=== PATIENT | female | born 1965 | race Caucasian/White ===

== ENCOUNTER 2016-05-31 11:23 | Inpatient (IN) | payer OTHER ==
[2016-05-31 12:22] VITALS: BMI 18.0
--- NOTE | 2016-05-31 12:33 | HP ---
CIWA Score - CIWA Score Nausea/Vomitin Muscle Tremors: 3 Anxiety: 3 Agitation: 3 Paroxysmal Sweats: 2 Orientation: 0-Oriented Tacttile Disturbances: 2-Mild Itch/Numbness/Burn Auditory Disturbances: 2-Mild Harshness/Frighten Visual Disturbances: 2-Mild Sensitivity Headache: 2-Mild CIWA-Ar Total Score: 22 Admission ROS [facility]HS - HPI Chief Complaint: i am here need help to stop drinking alcohol,cocaine,marijuana,and xanax Allergies/Adverse Reactions: Allergies Allergy/AdvReac Type Severity Reaction Status Date / Time No Known Allergies Allergy Verified 05/31/16 12:41 History of Present Illness: this 51 years old female with alcohol,cocaine,marijuana and xanax dependence, withdrawal symptom,last detox [facility] from 04/08/16 to 04/11/16 seizure last 2014 syncope bipolar disorder and ptsd longest period of sobriety 2 years has yeast like infection 2 days ago Exam Limitations: No Limitations - Ebola screening Have you traveled outside of the country in the last 21 days: No Have you had contact with anyone from an Ebola affected area: No Have you been sick,other than usual withdrawal symptoms: No Do you have a fever: No - Review of Systems Constitutional: Loss of Appetite, Malaise, Night Sweats, Changes in sleep, Weakness, Unintentional Wgt. Loss EENT: reports: Nose Congestion Respiratory: reports: No Symptoms reported, Other (asthma) Cardiac: reports: Palpitations GI: reports: Diarrhea, Nausea, Poor Fluid Intake, Vomiting : reports: No Symptoms Reported Musculoskeletal: reports: Back Pain, Muscle Pain Integumentary: reports: Dryness Neuro: reports: Headache, Tremors Endocrine: reports: No Symptoms Reported Hematology: reports: No Symptoms Reported Psychiatric: reports: other (bipolar disorder,ptsd) Other Systems: Reviewed and Negative Patient History - Patient Medical History Hx Anemia: No Hx Asthma: Yes (MDI) Hx Chronic Obstructive Pulmonary Disease (COPD): No Hx Cancer: No Hx Cardiac Disorders: No Hx Congestive Heart Failure: No Hx Hypertension: No Hx Hypercholesterolemia: No Hx Pacemaker: No HX Cerebrovascular Accident: No Hx Seizures: Yes (last ) Hx Dementia: No Hx Diabetes: No Hx Gastrointestinal Disorders: No Hx Liver Disease: No Hx Genitourinary Disorders: No Hx Sexually Transmitted Disorders: No Hx Renal Disease (ESRD): No Hx Thyroid Disease: No Hx Human Immunodeficiency Virus (HIV): No (NEGATIVE HX) Hx Hepatitis C: No Hx Depression: Yes (ON MEDS) Hx Suicide Attempt: Yes (pill overdose in 12/2015;DENIES CURRENT S/I IDEATION) Hx Bipolar Disorder: Yes (on meds,non compliance) Hx Schizophrenia: No Other Medical History: no suicidal,no homicidal,yeast vaginitis - Patient Surgical History Past Surgical History: No Hx Neurologic Surgery: No Hx Cataract Extraction: No Hx Cardiac Surgery: No Hx Lung Surgery: No Hx Breast Surgery: No Hx Breast Biopsy: No Hx Abdominal Surgery: No Hx Appendectomy: No Hx Cholecystectomy: No Hx Genitourinary Surgery: No Hx Section: No Hx Orthopedic Surgery: No Hx Hysterectomy: No Anesthesia Reaction: No - PPD History Previous Implant?: Yes Documented Results: Negative w/o proof Implanted On Prior [facility] Admission?: Yes Date: 04/19/15 Results: 0 mm PPD to be Administered?: Yes - Reproductive History Patient is a Female of Child Bearing Age (11 -55 yrs old): Yes Last Menstrual Period: 03/17/16 Patient : No - Smoking Cessation Smoking history: Current some day smoker Have you smoked in the past 12 months: Yes Aproximately how many cigarettes per day: 1 If you are a former smoker, when did you quit?: 05/12/16 Hx Chewing Tobacco Use: No Initiated information on smoking cessation: Yes 'Breaking Loose' booklet given: 05/31/16 - Substance & Tx. History Hx Alcohol Use: Yes Hx Substance Use: Yes Substance Use Type: Alcohol, Cocaine, Marijuana, Tranquilizers Hx Substance Use Treatment: Yes ([facility] 04/08/16 to 04/11/16) - Substances Abused Crack Route: Smoking Frequency: Daily Amount used: $200.00 Age of first use: 29 Date of Last Use: 05/30/16 Alcohol Route: Oral Frequency: Daily Amount used: Beer 1-6pks, Cognac 2 pints Age of first use: 17 Date of Last Use: 05/30/16 Marijuana/Hashish Route: Smoking Frequency: Daily Amount used: $50.00 Age of first use: 15 Date of Last Use: 05/30/16 Family Disease History - Family Disease History Family Disease History: Other: Father (alcohol,) Admission Physical Exam S - Vital Signs Vital Signs: Vital Signs - 24 hr 05/31/16 12:20 Temperature 97.6 F Pulse Rate 80 Respiratory 20 Rate Blood Pressure 117/67 - Physical General Appearance: Yes: Moderate Distress, Tremorous, Irritable, Sweating, Anxious HEENTM: Yes: Nasal Congestion, Rhinorrhea Respiratory: Yes: Lungs Clear Neck: Yes: Within Normal Limits Breast: Yes: Breast Exam Deferred, Within Normal Limits Cardiology: Yes: Within Normal Limits, Regular Rhythm, Regular Rate, S1, S2 Abdominal: Yes: Within Normal Limits, Normal Bowel Sounds, Non Tender, Flat, Soft Genitourinary: Yes: Vaginal Discharge Back: Yes: Muscle Spasm Musculoskeletal: Yes: Back pain, Muscle Pain Extremities: Yes: Tremors Neurological: Yes: shoe puller II-XII NML intact, Fully Oriented, Alert, Motor Strength 5/5 Integumentary: Yes: Dry Lymphatic: Yes: Within Normal Limits - Diagnostic (1) Alcohol dependence with uncomplicated withdrawal Current Visit: No Status: Chronic (2) Asthma Current Visit: No Status: Chronic Qualifiers: Asthma severity: unspecified severity Asthma complication type: uncomplicated Qualified Code(s): J45.909 - Unspecified asthma, uncomplicated (3) Bipolar II disorder Current Visit: No Status: Chronic (4) Cannabis dependence Current Visit: No Status: Chronic (5) Cocaine dependence with withdrawal Current Visit: No Status: Chronic (6) Seizure Current Visit: No Status: Chronic (7) Syncope Current Visit: No Status: Chronic (8) Weight loss Current Visit: No Status: Chronic (9) PTSD (post-traumatic stress disorder) Current Visit: No Status: Suspected Comment: As per self-report. (10) Vaginitis Current Visit: Yes Status: Acute (11) Low back pain Current Visit: Yes Status: Acute Cleared for Admission [facility] - Detox or Rehab [facility] Level of Care: Medically Managed Detox Regimen/Protocol: Librium [facility] Breath Alcohol Content Breath Alcohol Content: 0 Urine Pregancy Test - Result Urine Test Results: Negative- NO Line Present Urine Drug Screen - Results Drug Screen Negative: No Urine Drug Screen Results: THC-Marijuana, BARRY-Cocaine
[2016-05-31] MEDS ORDERED: ACETAMINOPHEN 325 MG TABLET (FP) PO PRN (12:48)
[2016-05-31] MEDS ORDERED: MAGNESIUM CITRATE 300 ML BOTTLE PO PRN (12:48)
[2016-05-31] MEDS ORDERED: IBUPROFEN 400 MG TABLET (FP) PO PRN (12:48)
[2016-05-31] MEDS ORDERED: diphenhydrAMINE HCL 50 MG CAPSULE PO PRN (12:48)
[2016-05-31] MEDS ORDERED: MAGNESIUM HYDROX 2400MG/30ML ORAL SUSPENSION 30 ML CUP PO PRN (12:48)
[2016-05-31] MEDS ORDERED: guaiFENesin/D-METHORPHAN HB 10 ML UNIT-DOSE CUPS PO PRN (12:48)
[2016-05-31] MEDS ORDERED: MAG HYDROX/AL HYDROX/SIMETH 30 ML UNIT-DOSE CUP PO PRN (12:48)
[2016-05-31] MEDS ORDERED: LOPERAMIDE HCL 2 MG CAPSULE PO PRN (12:48)
[2016-05-31] MEDS ORDERED: P-EPHED 60MG/TRIPROLIDI 2.5MG TABLET PO PRN (12:48)
[2016-05-31] MEDS ORDERED: MENTHOL/PHENOL 1 EACH UD MM PRN (12:48)
[2016-05-31] MEDS ORDERED: ALBUTEROL SO4 6.7 GM HFA INHALER IH PRN (12:55)
[2016-05-31] MEDS ORDERED: chlordiazePOXIDE HCL 25 MG CAPSULE PO ONE ×2 (13:00→16:55)
[2016-05-31] MEDS ORDERED: FLUCONAZOLE 50 MG TABLET PO ONE (13:02)
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
[2016-05-31] MEDS: CYCLOBENZAPRINE HCL 10 MG TABLET (FP) PO PRN (16:45)
[2016-05-31] MEDS: chlordiazePOXIDE HCL 25 MG CAPSULE PO SCH ×2 (16:51→22:42)
--- NOTE | 2016-05-31 16:55 | PN ---
[facility] Progress Note Note: RECEIVED NURSE CALL PATIENT WASTED LIBRIUM 50 MG ONE DOSE LIBRIUM STAT CONTINUE DETOX
[2016-05-31 17:44] LABS: URINE APPEARANCE CLOUDY; URINE BILIRUBIN NEGATIVE (NEGATIVE); URINE BLOOD NEGATIVE (NEGATIVE); URINE COLOR YELLOW; URINE GLUCOSE (UA) NEGATIVE (NEGATIVE); URINE KETONE NEGATIVE (NEGATIVE); URINE NITRITE NEGATIVE (NEGATIVE); URINE PROTEIN NEGATIVE (NEGATIVE); URINE UROBILINOGEN 2.0 E.U/dl E.U./dl (0.2-1.0)
[2016-05-31 17:59] LABS: URINE LEUK ESTERASE TRACE (NEGATIVE)
[2016-05-31 18:20] LABS: URINE BACTERIA RARE /hpf (NONE SEEN); URINE RBC 1 /hpf (0-3); URINE WBC 2 /hpf (3-5)
[2016-05-31] MEDS: MICONAZOLE NITRATE 100 MG SUPP SUPP.VAG PV SCH (22:39)
[2016-05-31] MEDS: DIVALPROEX SODIUM 500 MG TABLET E.C. PO SCH (22:41)
[2016-05-31] MEDS: THIAMINE HCL 100 MG TABLET (FP) PO SCH (22:41)
[2016-05-31] MEDS: QUEtiapine FUMARATE 100 MG TABLET (FP) PO SCH (22:41)
[2016-05-31] MEDS: AMMONIUM LACTATE 12% LOTION 225 GM BOTTLE TP SCH (22:41)
[2016-05-31] MEDS: BUDESONIDE/FORMETEROL FUMARATE 80/4.5 mcg INHALER IH SCH (22:43)
[2016-06-01] MEDS: chlordiazePOXIDE HCL 25 MG CAPSULE PO SCH ×4 (06:15→22:38)
[2016-06-01 10:44] LABS: MCH 29.9 pg (25.7-33.7); MCHC 32.3 g/dl (32.0-36.0); MEAN CELL VOLUME 92.7 fl (80-96); MEAN PLT VOLUME 8.4 fl (7.5-11.1); PLATELET COUNT 339 K/MM3 (134-434); RDW 15.3 % (11.6-15.6); WHITE BLOOD COUNT 7.3 K/mm3 (4.0-10.0)
[2016-06-01 10:45] LABS: URINE APPEARANCE CLEAR; URINE BILIRUBIN NEGATIVE (NEGATIVE); URINE BLOOD NEGATIVE (NEGATIVE); URINE COLOR STRAW; URINE GLUCOSE (UA) NEGATIVE (NEGATIVE); URINE KETONE NEGATIVE (NEGATIVE); URINE NITRITE NEGATIVE (NEGATIVE); URINE PROTEIN NEGATIVE (NEGATIVE); URINE UROBILINOGEN NEGATIVE E.U./dl (0.2-1.0)
[2016-06-01 10:46] LABS: URINE LEUK ESTERASE 2+ (NEGATIVE)
[2016-06-01 10:48] LABS: URINE RBC 1 /hpf (0-3); URINE WBC 2 /hpf (3-5)
[2016-06-01 10:51] LABS: ALBUMIN 3.9 g/dl (3.4-5.0); ALK PHOS 47 U/L (45-117); ANION GAP 9 (8-16); BILIRUBIN,TOTAL 0.2 mg/dL (0.2-1.0); CALCIUM 9.4 mg/dL (8.5-10.1); CO2 29 mmol/L (21-32); CREATININE 0.7 mg/dL (0.55-1.02); GLUCOSE,RANDOM 71 mg/dL (74-106); SGOT/AST 14 U/L (15-37); SGPT/ALT 17 U/L (12-78); TOT PROT 6.6 g/dl (6.4-8.2)
[2016-06-01] MEDS: BUDESONIDE/FORMETEROL FUMARATE 80/4.5 mcg INHALER IH SCH ×2 (11:00→23:26)
[2016-06-01] MEDS: PRENATAL VITAMINS W/ FOLIC ACID TABLET (FP) PO SCH (11:00)
[2016-06-01] MEDS: DIVALPROEX SODIUM 500 MG TABLET E.C. PO SCH ×2 (11:01→22:38)
[2016-06-01] MEDS: AMMONIUM LACTATE 12% LOTION 225 GM BOTTLE TP SCH ×2 (11:04→23:24)
[2016-06-01] MEDS: CYCLOBENZAPRINE HCL 10 MG TABLET (FP) PO PRN ×2 (11:06→22:38)
--- NOTE | 2016-06-01 14:26 | PN ---
S CIWA - CIWA Score Nausea/Vomitin Muscle Tremors: 3 Anxiety: 3 Agitation: 3 Paroxysmal Sweats: 1-Minimal Palms Moist Orientation: 0-Oriented Tacttile Disturbances: 1-Very Mild Itch/Numbness Auditory Disturbances: 1-Very Mild Visual Disturbances: 1-Very Mild Sensitivity Headache: 2-Mild CIWA-Ar Total Score: 18 BHS Progress Note (SOAP) Subjective: ALERT,IRRITABLE,ANXIOUS,INTERRUPTED SLEEP,TREMOR Objective: 06/01/16 14:23 Vital Signs Temperature 98.6 F 06/01/16 10:11 Pulse Rate 93 H 06/01/16 10:11 Respiratory Rate 16 06/01/16 10:11 Blood Pressure 141/89 06/01/16 10:11 O2 Sat by Pulse Oximetry (%) EKG NSR, NO CHEST PAIN,NO SOB,NO DIZZINESS Laboratory Last Values WBC 7.3 K/mm3 (4.0-10.0) 06/01/16 06:00 RBC 3.98 M/mm3 (3.60-5.2) 06/01/16 06:00 Hgb 11.9 GM/dL (10.7-15.3) 06/01/16 06:00 Hct 36.9 % (32.4-45.2) 06/01/16 06:00 MCV 92.7 fl (80-96) 06/01/16 06:00 MCHC 32.3 g/dl (32.0-36.0) 06/01/16 06:00 RDW 15.3 % (11.6-15.6) 06/01/16 06:00 Plt Count 339 K/MM3 (134-434) 06/01/16 06:00 MPV 8.4 fl (7.5-11.1) 06/01/16 06:00 Sodium 144 mmol/L (136-145) 06/01/16 06:00 Potassium 4.2 mmol/L (3.5-5.1) 06/01/16 06:00 Chloride 106 mmol/L (98-107) 06/01/16 06:00 Carbon Dioxide 29 mmol/L (21-32) 06/01/16 06:00 Anion Gap 9 (8-16) 06/01/16 06:00 BUN 13 mg/dL (7-18) D 06/01/16 06:00 Creatinine 0.7 mg/dL (0.55-1.02) 06/01/16 06:00 Creat Clearance w eGFR > 60 (>60) 06/01/16 06:00 Random Glucose 71 mg/dL (74-106) L 06/01/16 06:00 Calcium 9.4 mg/dL (8.5-10.1) 06/01/16 06:00 Total Bilirubin 0.2 mg/dL (0.2-1.0) D 06/01/16 06:00 AST 14 U/L (15-37) L D 06/01/16 06:00 ALT 17 U/L (12-78) 06/01/16 06:00 Alkaline Phosphatase 47 U/L (45-117) 06/01/16 06:00 Total Protein 6.6 g/dl (6.4-8.2) 06/01/16 06:00 Albumin 3.9 g/dl (3.4-5.0) 06/01/16 06:00 Urine Color Straw 06/01/16 08:40 Urine Appearance Clear 06/01/16 08:40 Urine pH 7.0 (5.0-8.0) 06/01/16 08:40 Ur Specific [place] 1.010 (1.001-1.035) 06/01/16 08:40 Urine Protein Negative (NEGATIVE) 06/01/16 08:40 Urine Glucose (UA) Negative (NEGATIVE) 06/01/16 08:40 Urine Ketones Negative (NEGATIVE) 06/01/16 08:40 Urine Blood Negative (NEGATIVE) 06/01/16 08:40 Urine Nitrite Negative (NEGATIVE) 06/01/16 08:40 Urine Bilirubin Negative (NEGATIVE) 06/01/16 08:40 Urine Urobilinogen Negative E.U./dl (0.2-1.0) 06/01/16 08:40 Ur Leukocyte Esterase 2+ (NEGATIVE) H D 06/01/16 08:40 Urine RBC 1 /hpf (0-3) 06/01/16 08:40 Urine WBC 2 /hpf (3-5) 06/01/16 08:40 Ur Epithelial Cells Rare /hpf (FEW) 06/01/16 08:40 Urine Bacteria Rare /hpf (NONE SEEN) 05/31/16 14:00 Valproic Acid < 3.000 ug/ml (50-100) L 06/01/16 09:30 Assessment: 06/01/16 14:25 WITHDRAWAL SYMPTOM Plan: CONTINUE DETOX
[2016-06-01] MEDS: hydrOXYzine PAMOATE 50 MG CAPSULE (FP) PO PRN (15:36)
[2016-06-01] MEDS: chlordiazePOXIDE HCL 25 MG CAPSULE PO PRN (20:43)
[2016-06-01] MEDS: THIAMINE HCL 100 MG TABLET (FP) PO SCH (22:37)
[2016-06-01] MEDS: QUEtiapine FUMARATE 100 MG TABLET (FP) PO SCH (22:38)
[2016-06-01] MEDS: ZOLPIDEM TARTRATE 5 MG TABLET PO PRN (22:38)
[2016-06-01] MEDS: MICONAZOLE NITRATE 100 MG SUPP SUPP.VAG PV SCH (23:24)
[2016-06-02] MEDS: CYCLOBENZAPRINE HCL 10 MG TABLET (FP) PO PRN ×3 (06:19→22:52)
[2016-06-02] MEDS: chlordiazePOXIDE HCL 25 MG CAPSULE PO SCH ×2 (06:19→10:42)
[2016-06-02] MEDS: hydrOXYzine PAMOATE 50 MG CAPSULE (FP) PO PRN ×3 (06:20→19:40)
[2016-06-02] MEDS: DIVALPROEX SODIUM 500 MG TABLET E.C. PO SCH ×2 (10:42→22:52)
[2016-06-02] MEDS: BUDESONIDE/FORMETEROL FUMARATE 80/4.5 mcg INHALER IH SCH ×2 (10:42→22:51)
[2016-06-02] MEDS: PRENATAL VITAMINS W/ FOLIC ACID TABLET (FP) PO SCH (10:42)
[2016-06-02] MEDS: AMMONIUM LACTATE 12% LOTION 225 GM BOTTLE TP SCH ×2 (10:54→23:13)
[2016-06-02] MEDS: chlordiazePOXIDE HCL 25 MG CAPSULE PO PRN ×2 (12:17→19:40)
--- NOTE | 2016-06-02 12:56 | PN ---
S CIWA - CIWA Score Nausea/Vomitin Muscle Tremors: 3 Anxiety: 2 Agitation: 2 Paroxysmal Sweats: 1-Minimal Palms Moist Orientation: 0-Oriented Tacttile Disturbances: 1-Very Mild Itch/Numbness Auditory Disturbances: 1-Very Mild Visual Disturbances: 1-Very Mild Sensitivity Headache: 2-Mild CIWA-Ar Total Score: 16 S Progress Note (SOAP) Subjective: ALERT,IRRITABLE,ANXIOUS,INTERRUPTED SLEEP,TREMOR Objective: 06/02/16 12:54 Vital Signs Temperature 96.9 F L 06/02/16 11:07 Pulse Rate 83 06/02/16 11:07 Respiratory Rate 16 06/02/16 11:07 Blood Pressure 129/63 06/02/16 11:07 O2 Sat by Pulse Oximetry (%) 06/02/16 12:55 Laboratory Last Values WBC 7.3 K/mm3 (4.0-10.0) 06/01/16 06:00 RBC 3.98 M/mm3 (3.60-5.2) 06/01/16 06:00 Hgb 11.9 GM/dL (10.7-15.3) 06/01/16 06:00 Hct 36.9 % (32.4-45.2) 06/01/16 06:00 MCV 92.7 fl (80-96) 06/01/16 06:00 MCHC 32.3 g/dl (32.0-36.0) 06/01/16 06:00 RDW 15.3 % (11.6-15.6) 06/01/16 06:00 Plt Count 339 K/MM3 (134-434) 06/01/16 06:00 MPV 8.4 fl (7.5-11.1) 06/01/16 06:00 Sodium 144 mmol/L (136-145) 06/01/16 06:00 Potassium 4.2 mmol/L (3.5-5.1) 06/01/16 06:00 Chloride 106 mmol/L (98-107) 06/01/16 06:00 Carbon Dioxide 29 mmol/L (21-32) 06/01/16 06:00 Anion Gap 9 (8-16) 06/01/16 06:00 BUN 13 mg/dL (7-18) D 06/01/16 06:00 Creatinine 0.7 mg/dL (0.55-1.02) 06/01/16 06:00 Creat Clearance w eGFR > 60 (>60) 06/01/16 06:00 Random Glucose 71 mg/dL (74-106) L 06/01/16 06:00 Calcium 9.4 mg/dL (8.5-10.1) 06/01/16 06:00 Total Bilirubin 0.2 mg/dL (0.2-1.0) D 06/01/16 06:00 AST 14 U/L (15-37) L D 06/01/16 06:00 ALT 17 U/L (12-78) 06/01/16 06:00 Alkaline Phosphatase 47 U/L (45-117) 06/01/16 06:00 Total Protein 6.6 g/dl (6.4-8.2) 06/01/16 06:00 Albumin 3.9 g/dl (3.4-5.0) 06/01/16 06:00 Urine Color Straw 06/01/16 08:40 Urine Appearance Clear 06/01/16 08:40 Urine pH 7.0 (5.0-8.0) 06/01/16 08:40 Ur Specific [place] 1.010 (1.001-1.035) 06/01/16 08:40 Urine Protein Negative (NEGATIVE) 06/01/16 08:40 Urine Glucose (UA) Negative (NEGATIVE) 06/01/16 08:40 Urine Ketones Negative (NEGATIVE) 06/01/16 08:40 Urine Blood Negative (NEGATIVE) 06/01/16 08:40 Urine Nitrite Negative (NEGATIVE) 06/01/16 08:40 Urine Bilirubin Negative (NEGATIVE) 06/01/16 08:40 Urine Urobilinogen Negative E.U./dl (0.2-1.0) 06/01/16 08:40 Ur Leukocyte Esterase 2+ (NEGATIVE) H D 06/01/16 08:40 Urine RBC 1 /hpf (0-3) 06/01/16 08:40 Urine WBC 2 /hpf (3-5) 06/01/16 08:40 Ur Epithelial Cells Rare /hpf (FEW) 06/01/16 08:40 Urine Bacteria Rare /hpf (NONE SEEN) 05/31/16 14:00 Valproic Acid < 3.000 ug/ml (50-100) L 06/01/16 09:30 RPR Titer Nonreactive (NONREACTIVE) 06/01/16 06:00 Assessment: 06/02/16 12:55 WITHDRAWAL SYMPTOM Plan: CONTINUE DETOX
[2016-06-02] MEDS: chlordiazePOXIDE 5 MG CAPSULE PO SCH ×2 (20:34→22:52)
[2016-06-02] MEDS: QUEtiapine FUMARATE 100 MG TABLET (FP) PO SCH (22:52)
[2016-06-02] MEDS: THIAMINE HCL 100 MG TABLET (FP) PO SCH (22:53)
[2016-06-02] MEDS: MICONAZOLE NITRATE 100 MG SUPP SUPP.VAG PV SCH (22:53)
[2016-06-02] MEDS: ZOLPIDEM TARTRATE 5 MG TABLET PO PRN (22:53)
[2016-06-03] MEDS: chlordiazePOXIDE 5 MG CAPSULE PO SCH (06:07)
[2016-06-03 06:55] VITALS: BP 109/58; PULSE 92; TEMP 97.9
--- NOTE | 2016-06-03 08:40 | PN ---
[facility] Progress Note Note: Pt states she does not feel comfortable to continue her detox wants to go home. residential mortgage underwriter, rn and substance abuse counselor spoke to pt to try to make changes to make her feel more comfortable but pt still insisted on leaving. pt signed AMA.
--- NOTE | 2016-06-03 09:04 | DS ---
[facility] Detox Discharge Summary Admission Date: 05/31/16 Discharge Date: 06/03/16 - History Present History: Alcohol Dependence, Cannabis Dependence, Cocaine Dependence - Physical Exam Results Vital Signs: Vital Signs Temperature 97.9 F 06/03/16 06:00 Pulse Rate 92 H 06/03/16 06:00 Respiratory Rate 18 06/03/16 06:00 Blood Pressure 109/58 06/03/16 06:00 O2 Sat by Pulse Oximetry (%) - Treatment Hospital Course: Detox Protocol Followed, Detoxed Safely, Responded well, Discharged Condition Good, Rehab Referral Accepted - Medication Discharge Medications: Ambulatory Orders Divalproex [Depakote -] 500 mg PO BID #60 tablet.ec 10/06/15 Budesonide/Formeterol Fumarate [SYMBICORT 80/4.5mcg -] 1 inh PO BID 11/14/15 Hydroxyzine Pamoate [Vistaril -] 75 mg PO BID 11/14/15 Quetiapine Fumarate [Seroquel] 100 mg PO BID 11/14/15 Trazodone HCl [Desyrel -] 150 mg PO HS 11/14/15 Albuterol Sulfate Inhaler - [Ventolin HFA Inhaler -] 2 puff IH Q4H PRN #0 inhaler 11/18/15 Zolpidem Tartrate [Ambien] 10 mg PO HS 02/26/16 Quetiapine Fumarate [Seroquel] 100 tab PO HS #30 tablet 02/28/16 Cyclobenzaprine HCl [Flexeril -] 10 mg PO BID 04/08/16 Divalproex [Depakote -] 500 mg PO BID #30 tablet.ec 05/31/16 Quetiapine Fumarate [Seroquel] 100 mg PO HS #30 tablet 05/31/16 Trazodone HCl 50 mg PO HS #30 tablet 05/31/16 - Diagnosis (1) Alcohol dependence with uncomplicated withdrawal Status: Chronic (2) Cannabis dependence Status: Chronic (3) Cocaine dependence with withdrawal Status: Chronic (4) Nicotine dependence Status: Chronic Qualifiers: Nicotine product type: cigarettes Substance use status: uncomplicated Qualified Code(s): F17.210 - Nicotine dependence, cigarettes, uncomplicated (5) Substance-induced sleep disorder Status: Acute (6) Vaginitis Status: Acute (7) Asthma Status: Chronic Qualifiers: Asthma severity: unspecified severity Asthma complication type: uncomplicated Qualified Code(s): J45.909 - Unspecified asthma, uncomplicated (8) Bipolar disorder Status: Chronic (9) Low back pain Status: Chronic (10) PTSD (post-traumatic stress disorder) Status: Chronic (11) Weight loss Status: Chronic (12) Bipolar II disorder Status: Chronic (13) Seizure Status: Chronic (14) Substance induced mood disorder Status: Chronic (15) Syncope Status: Chronic - AMA Did Patient Leave Against Medical Advice: Yes
--- NOTE | 2016-06-03 14:05 | EKG ---
Test Reason : Blood Pressure : / mmHG Vent. Rate : 074 BPM Atrial Rate : 074 BPM P-R Int : 130 ms QRS Dur : 066 ms QT Int : 366 ms P-R-T Axes : 063 079 039 degrees QTc Int : 406 ms NORMAL SINUS RHYTHM SEPTAL INFARCT , AGE UNDETERMINED ABNORMAL ECG NO PREVIOUS ECGS AVAILABLE Confirmed by MARCIANO FITCH MD ([id number]) on 06/03/2016 2:04:53 PM Referred By: Confirmed By:MARCIANO FITCH MD
[2016-06-03] MEDS ORDERED: chlordiazePOXIDE HCL 10 MG CAPSULE PO SCH (17:00)
== END 2016-06-03 09:26 | disposition home or self-care (01) | DRG 774 ==
LOC: YASAS 11:23 → Y6N 12:59
PROVIDERS: ADMIT Internal Medicine; ATTEND Internal Medicine
PROC: HZ2ZZZZ Detoxification Services for Substance Abuse Treatment (ICD-10-PCS; principal; 2016-06-03)
DX: F14.23 Cocaine dependence with withdrawal (principal); F12.20 Cannabis dependence, uncomplicated; F17.210 Nicotine dependence, cigarettes, uncomplicated; F19.282 Other psychoactive substance dependence with psychoactive substance-induced sleep disorder; F19.24 Other psychoactive substance dependence with psychoactive substance-induced mood disorder; F31.9 Bipolar disorder, unspecified; F31.81 Bipolar II disorder; F43.10 Post-traumatic stress disorder, unspecified; J45.909 Unspecified asthma, uncomplicated; R55 Syncope and collapse; M54.5 Low back pain; N76.0 Acute vaginitis; R63.4 Abnormal weight loss; Z68.1 Body mass index [BMI] 19.9 or less, adult
CPT/HCPCS: 36415; 80053; 80164; 81003; 81015; 85027; 86593; 93005; 93010

== ENCOUNTER 2016-07-01 09:59 | Inpatient (IN) | payer OTHER ==
[2016-07-01 10:50] VITALS: BMI 18.8
--- NOTE | 2016-07-01 14:14 | HP ---
CIWA Score - CIWA Score Nausea/Vomitin (N/V/D) Muscle Tremors: 4-Moderate,w/Arms Extend Anxiety: 4-Mod. Anxious/Guarded Agitation: 4-Moderately Restless Paroxysmal Sweats: 1-Minimal Palms Moist Orientation: 0-Oriented Tacttile Disturbances: 3-Moderate Itch/Numb/Burn Auditory Disturbances: 0-None Visual Disturbances: 0-None Headache: 2-Mild CIWA-Ar Total Score: 23 Admission ROS S - HPI Chief Complaint: DETOX TX FOR ALCOHOL DEPENDENCE Allergies/Adverse Reactions: Allergies Allergy/AdvReac Type Severity Reaction Status Date / Time No Known Allergies Allergy Verified 07/01/16 11:28 History of Present Illness: 51 Y/O FEMALE WITH A HX OF ALCOHOL,COCAINE AND MARIJUANA DEPENDENCE SEEKING DETOX TX. PT HAS MULTIPLE TREATMENT EPISODES. Exam Limitations: No Limitations - Ebola screening Have you traveled outside of the country in the last 21 days: No Have you had contact with anyone from an Ebola affected area: No Have you been sick,other than usual withdrawal symptoms: No Do you have a fever: No - Review of Systems Constitutional: Chills, Loss of Appetite, Night Sweats, Changes in sleep, Unintentional Wgt. Loss EENT: reports: Blurred Vision, Tearing, Tinnitus, Nose Congestion (SINUSITIS/ ALLERGIES) Respiratory: reports: Shortness of Breath (ASTHMA HX), Wheezing Cardiac: reports: Lightheadedness GI: reports: Diarrhea, Nausea, Poor Appetite, Vomiting : reports: No Symptoms Reported Musculoskeletal: reports: Back Pain (HX SCIATICA--RIGHT SIDE) Integumentary: reports: Dryness Neuro: reports: Headache (MIGRAINES HX), Tremors, Unsteady Gait, Dizziness Endocrine: reports: No Symptoms Reported Hematology: reports: No Symptoms Reported Psychiatric: reports: Orientated x3, Anxious, Depressed (ON MEDS) Other Systems: Reviewed and Negative Patient History - Patient Medical History Hx Anemia: No Hx Asthma: Yes (Pt is on MDI) Hx Chronic Obstructive Pulmonary Disease (COPD): No Hx Cancer: No Hx Cardiac Disorders: No Hx Congestive Heart Failure: No Hx Hypertension: No Hx Hypercholesterolemia: No Hx Pacemaker: No HX Cerebrovascular Accident: No Hx Seizures: Yes (K2 related seizure last yr.) Hx Dementia: No Hx Diabetes: No Hx Gastrointestinal Disorders: No Hx Liver Disease: No Hx Genitourinary Disorders: No Hx Sexually Transmitted Disorders: No Hx Renal Disease (ESRD): No Hx Thyroid Disease: No Hx Human Immunodeficiency Virus (HIV): No (NEGATIVE HX) Hx Hepatitis C: No Hx Depression: Yes (ON MEDS) Hx Suicide Attempt: Yes (OD ON PILLS AND ALCOHOL IN 2016;DENIES CURRENT IDEATIONS) Hx Bipolar Disorder: Yes (on meds,non compliance) Hx Schizophrenia: No - Patient Surgical History Past Surgical History: No Hx Neurologic Surgery: No Hx Cataract Extraction: No Hx Cardiac Surgery: No Hx Lung Surgery: No Hx Breast Surgery: No Hx Breast Biopsy: No Hx Abdominal Surgery: No Hx Appendectomy: No Hx Cholecystectomy: No Hx Genitourinary Surgery: No Hx Section: No Hx Orthopedic Surgery: No Hx Hysterectomy: No Anesthesia Reaction: No - PPD History Previous Implant?: Yes Documented Results: Negative w/proof Implanted On Prior [facility] Admission?: Yes Date: 06/02/16 Results: 0 mm PPD to be Administered?: No - Reproductive History Patient is a Female of Child Bearing Age (11 -55 yrs old): Yes Last Menstrual Period: 04/27/16 LMP comment: IRREGULAR SOMETIMES Patient : No - Smoking Cessation Smoking history: Current some day smoker Have you smoked in the past 12 months: Yes Aproximately how many cigarettes per day: 1 If you are a former smoker, when did you quit?: 05/12/16 Hx Chewing Tobacco Use: No Initiated information on smoking cessation: Yes 'Breaking Loose' booklet given: 07/01/16 - Substance & Tx. History Hx Alcohol Use: Yes (BEER/MONTSERRAT) Hx Substance Use: Yes (COCAINE/MARIJUANA) Substance Use Type: Alcohol, Cocaine, Marijuana Hx Substance Use Treatment: Yes ([facility]) - Substances Abused Alcohol Route: Oral Frequency: Daily Amount used: 6pk beer/1 pint rum Age of first use: 12 Date of Last Use: 06/30/16 Cocaine Route: Smoking Frequency: Daily Amount used: $500 Age of first use: 19 Date of Last Use: 07/01/16 Marijuana/Hashish Route: Smoking Frequency: Daily Amount used: $50 Age of first use: 15 Date of Last Use: 07/01/16 Family Disease History - Family Disease History Family Disease History: Other: Father (alcohol,) Admission Physical Exam S - Vital Signs Vital Signs: Vital Signs - 24 hr 07/01/16 10:47 Temperature 96.4 F L Pulse Rate 82 Respiratory 18 Rate Blood Pressure 135/84 - Physical General Appearance: Yes: Moderate Distress, Irritable, Anxious HEENTM: Yes: EOMI, Normocephalic, [place], Pharynx Normal Respiratory: Yes: Chest Non-Tender, Lungs Clear, Normal Breath Sounds, No Respiratory Distress Neck: Yes: Supple, Trachea in good position Breast: Yes: Breast Exam Deferred Cardiology: Yes: Regular Rhythm, Regular Rate, S1, S2 Abdominal: Yes: Normal Bowel Sounds, Non Tender, Flat, Soft Genitourinary: Yes: Other (N/C) Back: Yes: Within Normal Limits Musculoskeletal: Yes: full range of Motion, Gait Steady Extremities: Yes: Normal Range of Motion, Non-Tender Neurological: Yes: top screw II-XII NML intact, Fully Oriented, Alert Integumentary: Yes: Dry, Warm Lymphatic: Yes: Within Normal Limits - Diagnostic (1) Alcohol dependence with uncomplicated withdrawal Current Visit: Yes Status: Acute (2) Asthma Current Visit: Yes Status: Chronic Qualifiers: Asthma severity: unspecified severity Asthma complication type: uncomplicated Qualified Code(s): J45.909 - Unspecified asthma, uncomplicated (3) Cocaine dependence with withdrawal Current Visit: Yes Status: Acute (4) Seizure Current Visit: Yes Status: Chronic Cleared for Admission [facility] - Detox or Rehab [facility] Level of Care: Medically Managed Detox Regimen/Protocol: Librium [facility] Breath Alcohol Content Breath Alcohol Content: 0 Urine Pregancy Test - Result Urine Test Results: Negative- NO Line Present Urine Drug Screen - Results Drug Screen Negative: No Urine Drug Screen Results: BARRY-Cocaine
[2016-07-01] MEDS ORDERED: MAG HYDROX/AL HYDROX/SIMETH 30 ML UNIT-DOSE CUP PO PRN (14:26)
[2016-07-01] MEDS ORDERED: ACETAMINOPHEN 325 MG TABLET (FP) PO PRN (14:26)
[2016-07-01] MEDS ORDERED: MAGNESIUM HYDROX 2400MG/30ML ORAL SUSPENSION 30 ML CUP PO PRN (14:26)
[2016-07-01] MEDS ORDERED: P-EPHED 60MG/TRIPROLIDI 2.5MG TABLET PO PRN (14:26)
[2016-07-01] MEDS ORDERED: chlordiazePOXIDE HCL 25 MG CAPSULE PO PRN (14:26)
[2016-07-01] MEDS ORDERED: MENTHOL/PHENOL 1 EACH UD MM PRN (14:26)
[2016-07-01] MEDS ORDERED: hydrOXYzine PAMOATE 25 MG CAPSULE (FP) PO PRN (14:26)
[2016-07-01] MEDS ORDERED: diphenhydrAMINE HCL 50 MG CAPSULE PO PRN (14:26)
[2016-07-01] MEDS ORDERED: LOPERAMIDE HCL 2 MG CAPSULE PO PRN (14:26)
[2016-07-01] MEDS ORDERED: MAGNESIUM CITRATE 300 ML BOTTLE PO PRN (14:26)
[2016-07-01] MEDS ORDERED: NICOTINE POLACRILEX 2 MG GUM BC PRN (14:26)
[2016-07-01] MEDS ORDERED: guaiFENesin/D-METHORPHAN HB 10 ML UNIT-DOSE CUPS PO PRN (14:26)
[2016-07-01] MEDS ORDERED: NICOTINE 14 MG/24 HOURS TOPICAL PATCH TD SCH (14:30)
[2016-07-01] MEDS ORDERED: ALBUTEROL SO4 6.7 GM HFA INHALER IH PRN (14:33)
[2016-07-01] MEDS ORDERED: CYCLOBENZAPRINE HCL 10 MG TABLET (FP) ONE (15:08)
[2016-07-01] MEDS: IBUPROFEN 400 MG TABLET (FP) PO PRN (15:11)
[2016-07-01] MEDS: NICOTINE 14 MG/24 HOURS TOPICAL PATCH TD SCH (15:11)
[2016-07-01] MEDS ORDERED: chlordiazePOXIDE HCL 25 MG CAPSULE PO ONE (15:15)
--- NOTE | 2016-07-01 15:36 | CONSULT ---
[facility] Psychiatric Consult - Data Date of interview: 07/01/16 Admission source: [facility] Identifying data: This is 51 years old female with psychiatric hospitalization histoiry, history of Bipolar Disorder intoxicated with: Alcohol, Cocaine, Cannabis, Xanax, Nicotine, history of Opioids abuse Substance Abuse History: - Smoking Cessation. Smoking history: Current some day smoker. Have you smoked in the past 12 months: Yes. Aproximately how many cigarettes per day: 1. If you are a former smoker, when did you quit?: . Hx Chewing Tobacco Use: No. Initiated information on smoking cessation: Yes. 'Breaking Loose' booklet given: 07/01/16. - Substance & Tx. History. Hx Alcohol Use: Yes (BEER/MONTSERRAT). Hx Substance Use: Yes (COCAINE/MARIJUANA). Substance Use Type: Alcohol, Cocaine, Marijuana. Hx Substance Use Treatment: Yes ([facility]). - Substances Abused. Alcohol. Route: Oral. Frequency: Daily. Amount used: 6pk beer/1 pint rum. Age of first use: 12. Date of Last Use: 06/30/16. Cocaine. Route: Smoking. Frequency: Daily. Amount used: $ 500. Age of first use: 19. Date of Last Use: 07/01/16. Marijuana/Hashish. Route: Smoking. Frequency: Daily. Amount used: $50. Age of first use: 15. Date of Last Use: 07/01/16 Medical History: Asthma, Seizure history, LBP, Syncope history, Weight loss Psychiatric History: Patient reports to carry Bipolar disorder with most recent psychiatric admission at [facility] one month ago due to depressed episode. Patoent reports currently6 stable on: Depakote 500mg po bid. Seroquel 100mg po bid. Trazodone 150mg po qjhs. Flexeril 10mg po bid Physical/Sexual Abuse/Trauma History: Denies Additional Comment: Depakote 500mg po bid. Seroquel 100mg po bid. Trazodone 150mg po qjhs. Flexeril 10mg po bid Mental Status Exam - Mental Status Exam Alert and Oriented to: Person Cognitive Function: Fair Patient Appearance: Unkempt Mood: Anxious Affect: Mood Congruent Patient Behavior: Talkative, Cooperative Speech Pattern: Appropriate Voice Loudness: Normal Thought Process: Goal Oriented Thought Disorder: Being Controlled Hallucinations: Denies Suicidal Ideation: Denies Homicidal Ideation: Denies Insight/Judgement: Fair Sleep: Difficulty falling asleep Appetite: Weight loss Muscle strength/Tone: Normal Gait/Station: Normal Additional Comments: Depakote 500mg po bid. Seroquel 100mg po bid. Trazodone 150mg po qjhs. Flexeril 10mg po bid Psychiatric Findings - Problem List ([place] 1, 2,3) (1) Alcohol dependence with uncomplicated withdrawal Current Visit: Yes Status: Acute (2) Cocaine dependence with withdrawal Current Visit: Yes Status: Acute (3) Substance-induced sleep disorder Current Visit: No Status: Acute (4) Bipolar disorder Current Visit: No Status: Chronic Comment: Historical diagnosis reported by patient. (5) Cannabis dependence Current Visit: No Status: Chronic (6) Nicotine dependence Current Visit: No Status: Chronic Qualifiers: Nicotine product type: cigarettes Substance use status: uncomplicated Qualified Code(s): F17.210 - Nicotine dependence, cigarettes, uncomplicated (7) PTSD (post-traumatic stress disorder) Current Visit: No Status: Chronic Comment: As per self-report.No symptoms offered at this time. (8) Substance induced mood disorder Current Visit: No Status: Chronic - Initial Treatment Plan Initial Treatment Plan: Depakote 500mg po bid. Seroquel 100mg po bid. Trazodone 150mg po qjhs. Flexeril 10mg po bid. Depakote blood level
[2016-07-01] MEDS ORDERED: QUEtiapine FUMARATE 100 MG TABLET (FP) PO STA (15:46)
[2016-07-01] MEDS ORDERED: CYCLOBENZAPRINE HCL 10 MG TABLET (FP) PO ONE (15:51)
[2016-07-01] MEDS ORDERED: chlordiazePOXIDE HCL 25 MG CAPSULE PO SCH (17:00)
[2016-07-01 18:07] LABS: URINE APPEARANCE CLEAR; URINE BILIRUBIN NEGATIVE (NEGATIVE); URINE BLOOD NEGATIVE (NEGATIVE); URINE COLOR STRAW; URINE GLUCOSE (UA) NEGATIVE (NEGATIVE); URINE KETONE NEGATIVE (NEGATIVE); URINE LEUK ESTERASE NEGATIVE (NEGATIVE); URINE NITRITE NEGATIVE (NEGATIVE); URINE PROTEIN NEGATIVE (NEGATIVE); URINE UROBILINOGEN NEGATIVE E.U./dl (0.2-1.0)
[2016-07-01] MEDS ORDERED: CYCLOBENZAPRINE HCL 10 MG TABLET (FP) PO SCH (22:00)
[2016-07-01] MEDS: BUDESONIDE/FORMETEROL FUMARATE 80/4.5 mcg INHALER IH SCH (22:28)
[2016-07-01] MEDS: QUEtiapine FUMARATE 100 MG TABLET (FP) PO SCH (22:29)
[2016-07-01] MEDS: THIAMINE HCL 100 MG TABLET (FP) PO SCH (22:29)
[2016-07-01] MEDS: chlordiazePOXIDE HCL 25 MG CAPSULE PO SCH (22:30)
[2016-07-01] MEDS: traZODone HCL 50 MG TABLET (FP) PO SCH (22:31)
[2016-07-01] MEDS: DIVALPROEX SODIUM 500 MG TABLET E.C. PO SCH (22:31)
[2016-07-02] MEDS: chlordiazePOXIDE HCL 25 MG CAPSULE PO SCH ×4 (04:48→22:50)
[2016-07-02] MEDS: IBUPROFEN 400 MG TABLET (FP) PO PRN (04:49)
[2016-07-02] MEDS: CYCLOBENZAPRINE HCL 10 MG TABLET (FP) PO PRN ×2 (09:32→22:50)
--- NOTE | 2016-07-02 10:22 | PN ---
S CIWA - CIWA Score Nausea/Vomitin-No Nausea/No Vomiting Muscle Tremors: 4-Moderate,w/Arms Extend Anxiety: 3 Agitation: 4-Moderately Restless Paroxysmal Sweats: 3 Orientation: 0-Oriented Tacttile Disturbances: 0-None Auditory Disturbances: 0-None Visual Disturbances: 0-None Headache: 1-Very Mild CIWA-Ar Total Score: 15 BHS Progress Note (SOAP) Subjective: achy bones sweats restless legs tired shakes interrupted sleep Objective: 07/02/16 10:20 Vital Signs Temperature 97.9 F 07/02/16 10:19 Pulse Rate 103 H 07/02/16 10:19 Respiratory Rate 18 07/02/16 10:19 Blood Pressure 117/62 07/02/16 10:19 O2 Sat by Pulse Oximetry (%) Laboratory Tests 07/01/16 15:00 Urine Color Straw Urine Appearance Clear Urine pH 8.0 Ur Specific [place] 1.004 Urine Protein Negative Urine Glucose (UA) Negative Urine Ketones Negative Urine Blood Negative Urine Nitrite Negative Urine Bilirubin Negative Urine Urobilinogen Negative Ur Leukocyte Esterase Negative labs pending awake/alert ambulating no acute distress Assessment: 07/02/16 10:21 withdrawal sx Plan: continue detox increase fluids labs pending flexiril 10mg prn
[2016-07-02] MEDS: BUDESONIDE/FORMETEROL FUMARATE 80/4.5 mcg INHALER IH SCH ×2 (10:28→22:50)
[2016-07-02] MEDS: IBUPROFEN 600 MG TABLET (FP) PO PRN (10:29)
[2016-07-02] MEDS: QUEtiapine FUMARATE 100 MG TABLET (FP) PO SCH ×2 (10:29→22:50)
[2016-07-02] MEDS: PRENATAL VITAMINS W/ FOLIC ACID TABLET (FP) PO SCH (10:29)
[2016-07-02] MEDS: DIVALPROEX SODIUM 500 MG TABLET E.C. PO SCH ×2 (10:29→22:50)
[2016-07-02] MEDS: NICOTINE 14 MG/24 HOURS TOPICAL PATCH TD SCH (10:31)
[2016-07-02 10:35] LABS: MCH 29.4 pg (25.7-33.7); MCHC 31.8 g/dl (32.0-36.0); MEAN CELL VOLUME 92.2 fl (80-96); MEAN PLT VOLUME 8.4 fl (7.5-11.1); PLATELET COUNT 314 K/MM3 (134-434); RDW 16.3 % (11.6-15.6); WHITE BLOOD COUNT 6.8 K/mm3 (4.0-10.0)
[2016-07-02 10:42] LABS: ALBUMIN 3.9 g/dl (3.4-5.0); ANION GAP 11 (8-16); CALCIUM 9.6 mg/dL (8.5-10.1); CO2 30 mmol/L (21-32); GLUCOSE,RANDOM 111 mg/dL (74-106)
[2016-07-02 10:46] LABS: ALK PHOS 44 U/L (45-117); BILIRUBIN,TOTAL 0.3 mg/dL (0.2-1.0); CREATININE 0.8 mg/dL (0.55-1.02); SGOT/AST 13 U/L (15-37); SGPT/ALT 14 U/L (12-78); TOT PROT 7.1 g/dl (6.4-8.2)
--- NOTE | 2016-07-02 11:07 | EKG ---
Test Reason : Blood Pressure : / mmHG Vent. Rate : 075 BPM Atrial Rate : 075 BPM P-R Int : 118 ms QRS Dur : 082 ms QT Int : 374 ms P-R-T Axes : 060 076 -09 degrees QTc Int : 417 ms NORMAL SINUS RHYTHM SEPTAL INFARCT (CITED ON OR BEFORE 31-MAY-2016) ABNORMAL ECG WHEN COMPARED WITH ECG OF 31-MAY-2016 15:01, NO SIGNIFICANT CHANGE WAS FOUND Confirmed by ISACC SAVAGE, KATY ([id number]) on 07/02/2016 11:07:23 AM Referred By: Gopi Swift Confirmed By:KATY DEXTER MD
[2016-07-02] MEDS: traZODone HCL 50 MG TABLET (FP) PO SCH (22:50)
[2016-07-02] MEDS: THIAMINE HCL 100 MG TABLET (FP) PO SCH (22:50)
[2016-07-03] MEDS: chlordiazePOXIDE HCL 25 MG CAPSULE PO SCH ×3 (05:43→17:33)
[2016-07-03] MEDS: DIVALPROEX SODIUM 500 MG TABLET E.C. PO SCH ×2 (10:42→22:46)
[2016-07-03] MEDS: PRENATAL VITAMINS W/ FOLIC ACID TABLET (FP) PO SCH (10:43)
[2016-07-03] MEDS: BUDESONIDE/FORMETEROL FUMARATE 80/4.5 mcg INHALER IH SCH ×2 (10:43→22:45)
[2016-07-03] MEDS: QUEtiapine FUMARATE 100 MG TABLET (FP) PO SCH ×2 (10:44→22:45)
[2016-07-03] MEDS: NICOTINE 14 MG/24 HOURS TOPICAL PATCH TD SCH (10:44)
--- NOTE | 2016-07-03 12:22 | PN ---
S CIWA - CIWA Score Nausea/Vomitin Muscle Tremors: 2 Anxiety: 3 Agitation: 2 Paroxysmal Sweats: 3 Orientation: 0-Oriented Tacttile Disturbances: 1-Very Mild Itch/Numbness Auditory Disturbances: 0-None Visual Disturbances: 0-None Headache: 0-None Present CIWA-Ar Total Score: 13 S Progress Note (SOAP) Subjective: interrupted sleep,sweats,anxious Objective: 07/03/16 12:21 Vital Signs Temperature 96.8 F L 07/03/16 10:20 Pulse Rate 96 H 07/03/16 10:20 Respiratory Rate 18 07/03/16 10:20 Blood Pressure 114/70 07/03/16 10:20 O2 Sat by Pulse Oximetry (%) Laboratory Tests 07/01/16 07/01/16 07/02/16 13:00 15:00 06:00 WBC 6.8 RBC 4.32 Hgb 12.7 Hct 39.8 MCV 92.2 MCHC 31.8 L RDW 16.3 H Plt Count 314 MPV 8.4 Sodium Potassium Chloride Carbon Dioxide Anion Gap BUN Creatinine Creat Clearance w eGFR Random Glucose Calcium Total Bilirubin AST ALT Alkaline Phosphatase Total Protein Albumin Urine Color Straw Urine Appearance Clear Urine pH 8.0 Ur Specific [place] 1.004 Urine Protein Negative Urine Glucose (UA) Negative Urine Ketones Negative Urine Blood Negative Urine Nitrite Negative Urine Bilirubin Negative Urine Urobilinogen Negative Ur Leukocyte Esterase Negative Valproic Acid RPR Titer Hepatitis C Antibody <0.1 07/02/16 07/02/16 07/02/16 06:00 06:00 06:00 WBC RBC Hgb Hct MCV MCHC RDW Plt Count MPV Sodium 143 Potassium 4.0 Chloride 102 Carbon Dioxide 30 Anion Gap 11 BUN 5 L D Creatinine 0.8 Creat Clearance w eGFR > 60 Random Glucose 111 H D Calcium 9.6 Total Bilirubin 0.3 D AST 13 L ALT 14 Alkaline Phosphatase 44 L Total Protein 7.1 Albumin 3.9 Urine Color Urine Appearance Urine pH Ur Specific [place] Urine Protein Urine Glucose (UA) Urine Ketones Urine Blood Urine Nitrite Urine Bilirubin Urine Urobilinogen Ur Leukocyte Esterase Valproic Acid 28.836 L RPR Titer Nonreactive Hepatitis C Antibody Assessment: 07/03/16 12:22 withdrawal sx;s Plan: cont detox increase fluids reassurance
[2016-07-03] MEDS: LIDOCAINE 5% TOPICAL PATCH TP SCH (15:59)
[2016-07-03] MEDS: METHYL SALICYLATE/MENTHOL OINT 30 GM TUBE TP SCH (22:45)
[2016-07-03] MEDS: chlordiazePOXIDE 5 MG CAPSULE PO SCH (22:46)
[2016-07-03] MEDS: CYCLOBENZAPRINE HCL 10 MG TABLET (FP) PO PRN (22:46)
[2016-07-03] MEDS: traZODone HCL 50 MG TABLET (FP) PO SCH (22:46)
[2016-07-03] MEDS: THIAMINE HCL 100 MG TABLET (FP) PO SCH (23:14)
[2016-07-04] MEDS: chlordiazePOXIDE 5 MG CAPSULE PO SCH ×3 (05:31→17:44)
[2016-07-04] MEDS: IBUPROFEN 600 MG TABLET (FP) PO PRN (05:33)
[2016-07-04] MEDS: CYCLOBENZAPRINE HCL 10 MG TABLET (FP) PO PRN ×2 (08:43→22:29)
--- NOTE | 2016-07-04 09:02 | PN ---
BHS Progress Note (SOAP) Subjective: sweats interrupted sleep anxiety Objective: 07/04/16 09:01 Vital Signs Temperature 97.8 F 07/04/16 07:31 Pulse Rate 67 07/04/16 07:31 Respiratory Rate 16 07/04/16 07:31 Blood Pressure 106/64 07/04/16 07:31 O2 Sat by Pulse Oximetry (%) awake/alert ambulating no acute distress Assessment: 07/04/16 09:02 withdrawal sx Plan: continue detox increase fluids d/c in am
[2016-07-04] MEDS: METHYL SALICYLATE/MENTHOL OINT 30 GM TUBE TP SCH ×2 (10:38→22:42)
[2016-07-04] MEDS: DIVALPROEX SODIUM 500 MG TABLET E.C. PO SCH ×2 (10:38→22:29)
[2016-07-04] MEDS: NICOTINE 14 MG/24 HOURS TOPICAL PATCH TD SCH (10:39)
[2016-07-04] MEDS: BUDESONIDE/FORMETEROL FUMARATE 80/4.5 mcg INHALER IH SCH ×2 (10:39→22:29)
[2016-07-04] MEDS: LIDOCAINE 5% TOPICAL PATCH TP SCH (10:39)
[2016-07-04] MEDS: PRENATAL VITAMINS W/ FOLIC ACID TABLET (FP) PO SCH (10:39)
[2016-07-04] MEDS: QUEtiapine FUMARATE 100 MG TABLET (FP) PO SCH ×2 (10:40→22:29)
[2016-07-04] MEDS: chlordiazePOXIDE HCL 10 MG CAPSULE PO SCH (22:29)
[2016-07-04] MEDS: THIAMINE HCL 100 MG TABLET (FP) PO SCH (22:29)
[2016-07-04] MEDS: traZODone HCL 50 MG TABLET (FP) PO SCH (22:31)
[2016-07-05] MEDS: chlordiazePOXIDE HCL 10 MG CAPSULE PO SCH (05:29)
--- NOTE | 2016-07-05 08:43 | DS ---
[facility] Detox Discharge Summary Admission Date: 07/01/16 Discharge Date: 07/05/16 - History Present History: Alcohol Dependence, Cannabis Dependence, Cocaine Dependence - Physical Exam Results Vital Signs: Vital Signs Temperature 97.9 F 07/05/16 06:55 Pulse Rate 82 07/05/16 06:55 Respiratory Rate 80 H 07/05/16 06:55 Blood Pressure 137/87 07/05/16 06:55 O2 Sat by Pulse Oximetry (%) - Treatment Hospital Course: Detox Protocol Followed, Detoxed Safely, Responded well, Discharged Condition Good, Rehab Referral Accepted - Medication Discharge Medications: Ambulatory Orders Divalproex [Depakote -] 500 mg PO BID #60 tablet.ec 10/06/15 Budesonide/Formeterol Fumarate [SYMBICORT 80/4.5mcg -] 1 inh PO BID 11/14/15 Hydroxyzine Pamoate [Vistaril -] 75 mg PO BID 11/14/15 Albuterol Sulfate Inhaler - [Ventolin HFA Inhaler -] 2 puff IH Q4H PRN #0 inhaler 11/18/15 Cyclobenzaprine HCl [Flexeril -] 10 mg PO BID 04/08/16 Diphenhydramine [Benadryl -] 50 mg PO BID 07/01/16 Divalproex [Depakote -] 500 mg PO BID #60 tablet.ec 07/01/16 Quetiapine Fumarate [Seroquel] 100 mg PO BID 07/01/16 Quetiapine Fumarate [Seroquel] 100 mg PO BID #60 tablet 07/01/16 Trazodone HCl 150 mg PO HS 07/01/16 Trazodone HCl [Desyrel -] 150 mg PO HS #30 tablet 07/01/16 - Diagnosis (1) Alcohol dependence with uncomplicated withdrawal Current Visit: Yes Status: Chronic (2) Cocaine dependence with withdrawal Current Visit: Yes Status: Chronic (3) Asthma Current Visit: Yes Status: Chronic Qualifiers: Asthma severity: unspecified severity Asthma complication type: uncomplicated Qualified Code(s): J45.909 - Unspecified asthma, uncomplicated (4) Seizure Current Visit: Yes Status: Chronic (5) Substance-induced sleep disorder Current Visit: No Status: Acute (6) Vaginitis Current Visit: No Status: Resolved (7) Bipolar II disorder Current Visit: No Status: Chronic (8) Bipolar disorder Current Visit: No Status: Chronic (9) Cannabis dependence Current Visit: No Status: Chronic (10) Low back pain Current Visit: Yes Status: Chronic Qualifiers: Chronicity: unspecified (11) Nicotine dependence Current Visit: Yes Status: Chronic Qualifiers: Nicotine product type: cigarettes Substance use status: uncomplicated Qualified Code(s): F17.210 - Nicotine dependence, cigarettes, uncomplicated (12) PTSD (post-traumatic stress disorder) Current Visit: No Status: Chronic (13) Substance induced mood disorder Current Visit: No Status: Chronic (14) Syncope Current Visit: No Status: Chronic (15) Weight loss Current Visit: No Status: Chronic - AMA Did Patient Leave Against Medical Advice: No
[2016-07-05] MEDS: DIVALPROEX SODIUM 500 MG TABLET E.C. PO SCH (09:05)
[2016-07-05] MEDS: BUDESONIDE/FORMETEROL FUMARATE 80/4.5 mcg INHALER IH SCH (09:06)
[2016-07-05] MEDS: QUEtiapine FUMARATE 100 MG TABLET (FP) PO SCH (09:06)
[2016-07-05] MEDS: NICOTINE 14 MG/24 HOURS TOPICAL PATCH TD SCH (09:06)
[2016-07-05 10:33] VITALS: BP 125/78; PULSE 75; TEMP 97.5
[2016-07-05] MEDS: LIDOCAINE 5% TOPICAL PATCH TP SCH (11:40)
[2016-07-05] MEDS: PRENATAL VITAMINS W/ FOLIC ACID TABLET (FP) PO SCH (11:41)
== END 2016-07-05 09:20 | disposition home or self-care (01) | DRG 774 ==
LOC: YASAS 09:59 → Y6N 12:34
PROVIDERS: ADMIT Internal Medicine Addiction Medicine; ATTEND Internal Medicine Addiction Medicine
PROC: HZ2ZZZZ Detoxification Services for Substance Abuse Treatment (ICD-10-PCS; principal; 2016-07-05)
DX: F10.230 Alcohol dependence with withdrawal, uncomplicated (principal); F14.23 Cocaine dependence with withdrawal; F12.20 Cannabis dependence, uncomplicated; F17.210 Nicotine dependence, cigarettes, uncomplicated; G40.909 Epilepsy, unspecified, not intractable, without status epilepticus; M54.5 Low back pain; G89.29 Other chronic pain
CPT/HCPCS: 36415; 80053; 80164; 81003; 85027; 86593; 93005; 93010

== ENCOUNTER 2016-08-18 12:58 | Inpatient (IN) | payer OTHER ==
[2016-08-18 15:03] VITALS: BMI 18.8
--- NOTE | 2016-08-18 16:26 | HP ---
CIWA Score - CIWA Score Nausea/Vomitin Muscle Tremors: 4-Moderate,w/Arms Extend Anxiety: 4-Mod. Anxious/Guarded Agitation: 4-Moderately Restless Paroxysmal Sweats: 3 Orientation: 0-Oriented Tacttile Disturbances: 2-Mild Itch/Numbness/Burn Auditory Disturbances: 0-None Visual Disturbances: 0-None Headache: 2-Mild CIWA-Ar Total Score: 22 Admission ROS BHS - HPI Chief Complaint: Withdrawal sx. Allergies/Adverse Reactions: Allergies Allergy/AdvReac Type Severity Reaction Status Date / Time No Known Allergies Allergy Verified 07/01/16 11:28 History of Present Illness: 51 y/o woman with a long hx. of drug & Alcohol dependence is admitted for detox.Pt. has been in previous detox,reports 2 yrs. sober & drug free. Exam Limitations: No Limitations - Ebola screening Have you traveled outside of the country in the last 21 days: No Have you had contact with anyone from an Ebola affected area: No Have you been sick,other than usual withdrawal symptoms: No Do you have a fever: No - Review of Systems Constitutional: Diaphoresis EENT: reports: No Symptoms Reported Respiratory: reports: No Symptoms reported Cardiac: reports: No Symptoms Reported GI: reports: Nausea, Abdominal cramping : reports: No Symptoms Reported Musculoskeletal: reports: Back Pain, Joint Pain, Muscle Pain Integumentary: reports: Sweating Neuro: reports: Seizure (2 yrs.ago in 2014), Tremors Endocrine: reports: No Symptoms Reported Hematology: reports: No Symptoms Reported Psychiatric: reports: No Sypmtoms Reported Other Systems: Reviewed and Negative Patient History - Patient Medical History Hx Anemia: No Hx Asthma: Yes (Pt is on MDI) Hx Chronic Obstructive Pulmonary Disease (COPD): No Hx Cancer: No Hx Cardiac Disorders: No Hx Congestive Heart Failure: No Hx Hypertension: No Hx Hypercholesterolemia: No Hx Pacemaker: No HX Cerebrovascular Accident: No Hx Seizures: Yes (K2 related seizure 2 yr. ago) Hx Dementia: No Hx Diabetes: No Hx Gastrointestinal Disorders: No Hx Liver Disease: No Hx Genitourinary Disorders: No Hx Sexually Transmitted Disorders: No Hx Renal Disease (ESRD): No Hx Thyroid Disease: No Hx Human Immunodeficiency Virus (HIV): No Hx Hepatitis C: No Hx Depression: Yes (ON MEDS) Hx Suicide Attempt: Yes (OD ON PILLS AND ALCOHOL IN 2016;DENIES CURRENT IDEATIONS) Hx Bipolar Disorder: Yes (on meds,non compliance) Hx Schizophrenia: No Other Medical History: PTSD - Patient Surgical History Past Surgical History: No Hx Neurologic Surgery: No Hx Cataract Extraction: No Hx Cardiac Surgery: No Hx Lung Surgery: No Hx Breast Surgery: No Hx Breast Biopsy: No Hx Abdominal Surgery: No Hx Appendectomy: No Hx Cholecystectomy: No Hx Genitourinary Surgery: No Hx Section: No Hx Orthopedic Surgery: No Hx Hysterectomy: No Anesthesia Reaction: No - PPD History Previous Implant?: Yes Documented Results: Negative w/proof Date: 06/02/16 Results: 0 mm PPD to be Administered?: No - Reproductive History Patient is a Female of Child Bearing Age (11 -55 yrs old): Yes Last Menstrual Period: 08/04/16 Patient : No - Smoking Cessation Smoking history: Current some day smoker Have you smoked in the past 12 months: Yes If you are a former smoker, when did you quit?: 05/12/16 Hx Chewing Tobacco Use: No Initiated information on smoking cessation: No - Substance & Tx. History Hx Alcohol Use: Yes Hx Substance Use: Yes Substance Use Type: Alcohol, Tranquilizers Hx Substance Use Treatment: Yes (detox) - Substances Abused Alcohol Route: Oral Frequency: Daily Amount used: Beer 1(6pack), cognac 1/2 pint Age of first use: 12 Date of Last Use: 08/17/16 Alprazolam (Xanax) Route: Oral Frequency: Daily Amount used: 4mg Age of first use: 30 Date of Last Use: 08/15/16 Crack Route: Smoking Frequency: Daily Amount used: $200.00 Age of first use: 19 Date of Last Use: 08/17/16 Family Disease History - Family Disease History Family Disease History: Heart Disease: Father (HTN,IA,alcohol,,brain ca) , CA: Father, Other: Father Admission Physical Exam BHS - Vital Signs Vital Signs: Vital Signs - 24 hr 08/18/16 14:58 Temperature 96.9 F L Pulse Rate 75 Respiratory 18 Rate Blood Pressure 101/61 - Physical General Appearance: Yes: Tremorous, Irritable, Sweating, Anxious HEENTM: Yes: Within Normal Limits Respiratory: Yes: Chest Non-Tender, Lungs Clear, Normal Breath Sounds Neck: Yes: Supple Breast: Yes: Breast Exam Deferred Cardiology: Yes: Regular Rhythm, Regular Rate, S1, S2 Abdominal: Yes: Normal Bowel Sounds, Non Tender, Soft Genitourinary: Yes: Within Normal Limits Back: Yes: Within Normal Limits Musculoskeletal: Yes: Within Normal Limits Extremities: Yes: Tremors Neurological: Yes: Fully Oriented, Alert Integumentary: Yes: Diaphoresis Lymphatic: Yes: Within Normal Limits - Diagnostic (1) Alcohol dependence with uncomplicated withdrawal Current Visit: Yes Status: Chronic (2) Asthma Current Visit: Yes Status: Chronic Qualifiers: Asthma severity: unspecified severity Asthma complication type: uncomplicated Qualified Code(s): J45.909 - Unspecified asthma, uncomplicated (3) Cannabis dependence Current Visit: Yes Status: Chronic (4) Cocaine dependence with withdrawal Current Visit: Yes Status: Chronic Cleared for Admission [facility] - Detox or Rehab [facility] Level of Care: Medically Managed Detox Regimen/Protocol: Librium S Breath Alcohol Content Breath Alcohol Content: 0 Urine Pregancy Test - Result Urine Test Results: Negative- NO Line Present Urine Drug Screen - Results Drug Screen Negative: No Urine Drug Screen Results: THC-Marijuana, BARRY-Cocaine, BZO-Benzodiazepines
[2016-08-18] MEDS ORDERED: MAGNESIUM CITRATE 300 ML BOTTLE PO PRN (16:36)
[2016-08-18] MEDS ORDERED: P-EPHED 60MG/TRIPROLIDI 2.5MG TABLET PO PRN (16:36)
[2016-08-18] MEDS ORDERED: chlordiazePOXIDE HCL 25 MG CAPSULE PO ONE (16:36)
[2016-08-18] MEDS ORDERED: diphenhydrAMINE HCL 50 MG CAPSULE PO PRN (16:36)
[2016-08-18] MEDS ORDERED: LOPERAMIDE HCL 2 MG CAPSULE PO PRN (16:36)
[2016-08-18] MEDS ORDERED: ACETAMINOPHEN 325 MG TABLET (FP) PO PRN (16:36)
[2016-08-18] MEDS ORDERED: guaiFENesin/D-METHORPHAN HB 10 ML UNIT-DOSE CUPS PO PRN (16:36)
[2016-08-18] MEDS ORDERED: MAGNESIUM HYDROX 2400MG/30ML ORAL SUSPENSION 30 ML CUP PO PRN (16:36)
[2016-08-18] MEDS ORDERED: MAG HYDROX/AL HYDROX/SIMETH 30 ML UNIT-DOSE CUP PO PRN (16:36)
[2016-08-18] MEDS ORDERED: MENTHOL/PHENOL 1 EACH UD MM PRN (16:36)
[2016-08-18] MEDS ORDERED: ALBUTEROL SO4 6.7 GM HFA INHALER IH PRN (16:39)
[2016-08-18] MEDS: chlordiazePOXIDE HCL 25 MG CAPSULE PO SCH ×2 (18:05→22:11)
[2016-08-18] MEDS: chlordiazePOXIDE HCL 25 MG CAPSULE PO PRN (19:45)
[2016-08-18] MEDS: CYCLOBENZAPRINE HCL 10 MG TABLET (FP) PO SCH (22:10)
[2016-08-18] MEDS: THIAMINE HCL 100 MG TABLET (FP) PO SCH (22:10)
[2016-08-18] MEDS: BUDESONIDE/FORMETEROL FUMARATE 80/4.5 mcg INHALER IH SCH (22:10)
[2016-08-18] MEDS: MICONAZOLE NITRATE 2% VAGINAL CREAM 45 GM TUBE VG SCH (22:11)
[2016-08-19] MEDS: chlordiazePOXIDE HCL 25 MG CAPSULE PO PRN (02:37)
[2016-08-19] MEDS: hydrOXYzine PAMOATE 50 MG CAPSULE (FP) PO PRN (02:37)
[2016-08-19] MEDS: chlordiazePOXIDE HCL 25 MG CAPSULE PO SCH ×4 (05:19→22:02)
[2016-08-19] MEDS: MICONAZOLE NITRATE 2% VAGINAL CREAM 45 GM TUBE VG SCH (05:25)
[2016-08-19 10:09] LABS: MCH 28.9 pg (25.7-33.7); MEAN CELL VOLUME 90.4 fl (80-96); MEAN PLT VOLUME 8.6 fl (7.5-11.1); PLATELET COUNT 277 K/MM3 (134-434); RDW 16.2 % (11.6-15.6)
--- NOTE | 2016-08-19 10:13 | CONSULT ---
[facility] Psychiatric Consult - Data Date of interview: 08/19/16 Admission source: [facility] Identifying data: This is 51 years old female with psychiatric hospitalization history intoxicated withy: Alcohol, Cocaine, Cannabis, mXanax anmd Nicotine Substance Abuse History: Smoking history: Current some day smoker. Have you smoked in the past 12 months: Yes. If you are a former smoker, when did you quit?: 05/12/16. Hx Chewing Tobacco Use: No. Initiated information on smoking cessation: No. - Substance & Tx. History. Hx Alcohol Use: Yes. Hx Substance Use: Yes. Substance Use Type: Alcohol, Tranquilizers. Hx Substance Use Treatment: Yes (detox). - Substances Abused. Alcohol. Route: Oral. Frequency: Daily. Amount used: Beer 1(6pack), cognac 1/2 pint. Age of first use: 12. Date of Last Use: 08/17/16. Alprazolam (Xanax). Route: Oral. Frequency: Daily. Amount used: 4mg. Age of first use: 30. Date of Last Use: 08/15/16. Crack. Route: Smoking. Frequency: Daily. Amount used: $200.00. Age of first use: 19. Date of Last Use: 08/17/16 Medical History: Asthma, Weight loss history, Seizure history, Syncope histiey Psychiatric History: Patient reports to carry Bipolar disorder with most trecent psychiatric admission at [facility] for 1 week for safety, reports currently taking: Seroquel 100mg po bid. Trazodone 150mg po qhs. Depakote 500mg po bid. Gabapentin 300mg po tid Physical/Sexual Abuse/Trauma History: Denies Additional Comment: Seroquel 100mg po bid. Trazodone 150mg po qhs. Depakote 500mg po bid. Gabapentin 300mg po tid Mental Status Exam - Mental Status Exam Alert and Oriented to: Person Cognitive Function: Fair Patient Appearance: Unkempt Mood: Sad Affect: Flat Patient Behavior: Cooperative Voice Loudness: Normal Thought Process: Goal Oriented Thought Disorder: Being Controlled Hallucinations: Denies Suicidal Ideation: Denies Homicidal Ideation: Denies Insight/Judgement: Fair Sleep: Difficulty falling asleep Appetite: Weight gain Muscle strength/Tone: Normal Gait/Station: Normal Additional Comments: Seroquel 100mg po bid. Trazodone 150mg po qhs. Depakote 500mg po bid. Gabapentin 300mg po tid Psychiatric Findings - Problem List ([place] 1, 2,3) (1) Alcohol dependence with uncomplicated withdrawal Current Visit: Yes Status: Chronic (2) Cannabis dependence Current Visit: Yes Status: Chronic (3) Cocaine dependence with withdrawal Current Visit: Yes Status: Chronic (4) Substance-induced sleep disorder Current Visit: No Status: Acute (5) Bipolar disorder Current Visit: No Status: Chronic Comment: Historical diagnosis reported by patient. (6) Low back pain Current Visit: No Status: Chronic Qualifiers: Chronicity: unspecified (7) Nicotine dependence Current Visit: No Status: Chronic Qualifiers: Nicotine product type: cigarettes Substance use status: uncomplicated Qualified Code(s): F17.210 - Nicotine dependence, cigarettes, uncomplicated (8) PTSD (post-traumatic stress disorder) Current Visit: No Status: Chronic Comment: As per self-report.No symptoms offered at this time. (9) Seizure Current Visit: No Status: Chronic (10) Substance induced mood disorder Current Visit: No Status: Chronic (11) Syncope Current Visit: No Status: Chronic - Initial Treatment Plan Initial Treatment Plan: Seroquel 100mg po bid. Trazodone 150mg po qhs. Depakote 500mg po bid. Gabapentin 300mg po tid
[2016-08-19] MEDS: PRENATAL VITAMINS W/ FOLIC ACID TABLET (FP) PO SCH (10:34)
[2016-08-19] MEDS: CYCLOBENZAPRINE HCL 10 MG TABLET (FP) PO SCH ×2 (10:34→22:03)
[2016-08-19] MEDS: DIVALPROEX SODIUM 500 MG TABLET E.C. PO SCH ×2 (10:35→22:03)
[2016-08-19 10:36] LABS: ALBUMIN 3.7 g/dl (3.4-5.0); ALK PHOS 45 U/L (45-117); ANION GAP 8 (8-16); BILIRUBIN,TOTAL 0.2 mg/dL (0.2-1.0); CO2 29 mmol/L (21-32); CREATININE 0.7 mg/dL (0.55-1.02); GLUCOSE,RANDOM 68 mg/dL (74-106); SGOT/AST 13 U/L (15-37); SGPT/ALT 17 U/L (12-78); TOT PROT 6.8 g/dl (6.4-8.2)
[2016-08-19] MEDS: QUEtiapine FUMARATE 100 MG TABLET (FP) PO SCH ×2 (10:37→22:02)
[2016-08-19] MEDS: BUDESONIDE/FORMETEROL FUMARATE 80/4.5 mcg INHALER IH SCH ×2 (10:37→22:02)
--- NOTE | 2016-08-19 10:55 | PN ---
[facility] CIWA - CIWA Score Nausea/Vomitin-No Nausea/No Vomiting Muscle Tremors: 4-Moderate,w/Arms Extend Anxiety: 4-Mod. Anxious/Guarded Agitation: 4-Moderately Restless Paroxysmal Sweats: 3 Orientation: 0-Oriented Tacttile Disturbances: 0-None Auditory Disturbances: 0-None Visual Disturbances: 0-None Headache: 1-Very Mild CIWA-Ar Total Score: 16 BHS Progress Note (SOAP) Subjective: agitation anxiety sweats irritable shakes low appetite Objective: 08/19/16 10:55 Vital Signs Temperature 97.9 F 08/19/16 09:24 Pulse Rate 81 08/19/16 09:24 Respiratory Rate 16 08/19/16 09:24 Blood Pressure 104/74 08/19/16 09:24 O2 Sat by Pulse Oximetry (%) Laboratory Tests 08/19/16 08/19/16 07:00 07:00 WBC 7.0 RBC 4.09 Hgb 11.8 Hct 37.0 MCV 90.4 MCHC 32.0 RDW 16.2 H Plt Count 277 MPV 8.6 Sodium 139 Potassium 4.3 Chloride 102 Carbon Dioxide 29 Anion Gap 8 BUN 21 H D Creatinine 0.7 Creat Clearance w eGFR > 60 Random Glucose 68 L D Calcium 9.0 Total Bilirubin 0.2 D AST 13 L ALT 17 D Alkaline Phosphatase 45 Total Protein 6.8 Albumin 3.7 labs pending awake/alert ambulating no acute distress Assessment: 08/19/16 10:56 withdrawal sx Plan: continue detox increase fluids labs pending
--- NOTE | 2016-08-19 11:11 | EKG ---
Test Reason : Blood Pressure : / mmHG Vent. Rate : 069 BPM Atrial Rate : 069 BPM P-R Int : 128 ms QRS Dur : 084 ms QT Int : 400 ms P-R-T Axes : 058 079 037 degrees QTc Int : 428 ms NORMAL SINUS RHYTHM NORMAL ECG WHEN COMPARED WITH ECG OF 01-JUL-2016 15:21, CRITERIA FOR SEPTAL INFARCT ARE NO LONGER PRESENT NONSPECIFIC T WAVE ABNORMALITY HAS REPLACED INVERTED T WAVES IN INFERIOR LEADS NONSPECIFIC T WAVE ABNORMALITY NO LONGER EVIDENT IN ANTEROLATERAL LEADS Confirmed by CLEMENCIA COATS MD ([id number]) on 08/19/2016 11:10:58 AM Referred By: Urban Pantoja Confirmed By:CLEMENCIA COATS MD
[2016-08-19] MEDS: GABAPENTIN 300 MG CAPSULE (FP) PO SCH ×2 (14:27→22:03)
[2016-08-19 18:14] LABS: URINE APPEARANCE CLEAR; URINE BILIRUBIN NEGATIVE (NEGATIVE); URINE BLOOD NEGATIVE (NEGATIVE); URINE COLOR LTYELLOW; URINE GLUCOSE (UA) NEGATIVE (NEGATIVE); URINE KETONE NEGATIVE (NEGATIVE); URINE LEUK ESTERASE NEGATIVE (NEGATIVE); URINE NITRITE NEGATIVE (NEGATIVE); URINE PROTEIN NEGATIVE (NEGATIVE); URINE UROBILINOGEN NEGATIVE E.U./dl (0.2-1.0)
[2016-08-19] MEDS: THIAMINE HCL 100 MG TABLET (FP) PO SCH (22:02)
[2016-08-19] MEDS: traZODone HCL 50 MG TABLET (FP) PO SCH (22:02)
[2016-08-20] MEDS: hydrOXYzine PAMOATE 50 MG CAPSULE (FP) PO PRN (03:06)
[2016-08-20] MEDS: chlordiazePOXIDE HCL 25 MG CAPSULE PO SCH ×2 (06:11→10:24)
[2016-08-20] MEDS: GABAPENTIN 300 MG CAPSULE (FP) PO SCH ×3 (06:11→23:02)
--- NOTE | 2016-08-20 08:51 | PN ---
S CIWA - CIWA Score Nausea/Vomitin Muscle Tremors: 2 Anxiety: 3 Agitation: 3 Paroxysmal Sweats: 3 Orientation: 0-Oriented Tacttile Disturbances: 2-Mild Itch/Numbness/Burn Auditory Disturbances: 0-None Visual Disturbances: 0-None Headache: 0-None Present CIWA-Ar Total Score: 16 S Progress Note (SOAP) Subjective: interrupted sleep, sweats, shakes , rt sciatica Objective: 08/20/16 08:49 Vital Signs Temperature 97.7 F 08/20/16 07:02 Pulse Rate 82 08/20/16 07:02 Respiratory Rate 18 08/20/16 07:02 Blood Pressure 93/56 08/20/16 07:02 O2 Sat by Pulse Oximetry (%) Laboratory Tests 08/19/16 08/19/16 08/19/16 07:00 07:00 07:00 WBC 7.0 RBC 4.09 Hgb 11.8 Hct 37.0 MCV 90.4 MCHC 32.0 RDW 16.2 H Plt Count 277 MPV 8.6 Sodium 139 Potassium 4.3 Chloride 102 Carbon Dioxide 29 Anion Gap 8 BUN 21 H D Creatinine 0.7 Creat Clearance w eGFR > 60 Random Glucose 68 L D Calcium 9.0 Total Bilirubin 0.2 D AST 13 L ALT 17 D Alkaline Phosphatase 45 Total Protein 6.8 Albumin 3.7 Urine Color Urine Appearance Urine pH Ur Specific [place] Urine Protein Urine Glucose (UA) Urine Ketones Urine Blood Urine Nitrite Urine Bilirubin Urine Urobilinogen Ur Leukocyte Esterase RPR Titer Nonreactive 08/19/16 14:00 WBC RBC Hgb Hct MCV MCHC RDW Plt Count MPV Sodium Potassium Chloride Carbon Dioxide Anion Gap BUN Creatinine Creat Clearance w eGFR Random Glucose Calcium Total Bilirubin AST ALT Alkaline Phosphatase Total Protein Albumin Urine Color Ltyellow Urine Appearance Clear Urine pH 6.0 D Ur Specific [place] 1.013 Urine Protein Negative Urine Glucose (UA) Negative Urine Ketones Negative Urine Blood Negative Urine Nitrite Negative Urine Bilirubin Negative Urine Urobilinogen Negative Ur Leukocyte Esterase Negative RPR Titer pt aox3 in nad ambulating Assessment: 08/20/16 08:49 withdrawal sx's rt sciatica Plan: cont. detox increase fluids analgesic balm motrin prn
[2016-08-20] MEDS: BUDESONIDE/FORMETEROL FUMARATE 80/4.5 mcg INHALER IH SCH ×2 (10:23→23:02)
[2016-08-20] MEDS: PRENATAL VITAMINS W/ FOLIC ACID TABLET (FP) PO SCH (10:24)
[2016-08-20] MEDS: DIVALPROEX SODIUM 500 MG TABLET E.C. PO SCH ×2 (10:24→23:03)
[2016-08-20] MEDS: CYCLOBENZAPRINE HCL 10 MG TABLET (FP) PO SCH ×2 (10:24→23:05)
[2016-08-20] MEDS: QUEtiapine FUMARATE 100 MG TABLET (FP) PO SCH ×2 (10:24→23:03)
[2016-08-20] MEDS: METHYL SALICYLATE/MENTHOL OINT 30 GM TUBE TP SCH ×2 (10:32→23:57)
[2016-08-20] MEDS: IBUPROFEN 400 MG TABLET (FP) PO PRN (12:31)
[2016-08-20] MEDS: chlordiazePOXIDE 5 MG CAPSULE PO SCH ×2 (17:19→23:02)
[2016-08-20] MEDS: traZODone HCL 50 MG TABLET (FP) PO SCH (23:02)
[2016-08-20] MEDS: THIAMINE HCL 100 MG TABLET (FP) PO SCH (23:03)
[2016-08-20] MEDS: MICONAZOLE NITRATE 2% VAGINAL CREAM 45 GM TUBE VG SCH (23:29)
[2016-08-21] MEDS: chlordiazePOXIDE 5 MG CAPSULE PO SCH ×2 (05:30→10:30)
[2016-08-21] MEDS: GABAPENTIN 300 MG CAPSULE (FP) PO SCH ×3 (05:32→22:08)
[2016-08-21] MEDS: METHYL SALICYLATE/MENTHOL OINT 30 GM TUBE TP SCH ×2 (10:29→22:06)
[2016-08-21] MEDS: BUDESONIDE/FORMETEROL FUMARATE 80/4.5 mcg INHALER IH SCH ×2 (10:29→22:06)
[2016-08-21] MEDS: PRENATAL VITAMINS W/ FOLIC ACID TABLET (FP) PO SCH (10:30)
[2016-08-21] MEDS: CYCLOBENZAPRINE HCL 10 MG TABLET (FP) PO SCH ×2 (10:30→22:08)
[2016-08-21] MEDS: QUEtiapine FUMARATE 100 MG TABLET (FP) PO SCH ×2 (10:30→22:08)
[2016-08-21] MEDS: DIVALPROEX SODIUM 500 MG TABLET E.C. PO SCH ×2 (10:30→22:08)
--- NOTE | 2016-08-21 11:03 | PN ---
BHS Progress Note (SOAP) Subjective: feeling better sweats Objective: 08/21/16 11:03 Vital Signs Temperature 97 F L 08/21/16 10:41 Pulse Rate 91 H 08/21/16 10:41 Respiratory Rate 16 08/21/16 10:41 Blood Pressure 103/67 08/21/16 10:41 O2 Sat by Pulse Oximetry (%) awake/alert ambulating no acute distress Assessment: 08/21/16 11:04 withdrawal sx Plan: continue detox increase fluids d/c in am
[2016-08-21] MEDS: IBUPROFEN 400 MG TABLET (FP) PO PRN (16:00)
[2016-08-21] MEDS: chlordiazePOXIDE HCL 10 MG CAPSULE PO SCH ×2 (16:50→22:08)
[2016-08-21] MEDS: THIAMINE HCL 100 MG TABLET (FP) PO SCH (22:07)
[2016-08-21] MEDS: traZODone HCL 50 MG TABLET (FP) PO SCH (22:07)
[2016-08-22] MEDS: chlordiazePOXIDE HCL 10 MG CAPSULE PO SCH (05:21)
[2016-08-22] MEDS: GABAPENTIN 300 MG CAPSULE (FP) PO SCH (05:22)
[2016-08-22] MEDS: hydrOXYzine PAMOATE 50 MG CAPSULE (FP) PO PRN (05:24)
[2016-08-22] MEDS: PRENATAL VITAMINS W/ FOLIC ACID TABLET (FP) PO SCH (09:47)
[2016-08-22] MEDS: QUEtiapine FUMARATE 100 MG TABLET (FP) PO SCH (09:47)
[2016-08-22] MEDS: DIVALPROEX SODIUM 500 MG TABLET E.C. PO SCH (09:47)
[2016-08-22] MEDS: CYCLOBENZAPRINE HCL 10 MG TABLET (FP) PO SCH (09:47)
[2016-08-22 09:58] VITALS: BP 101/70; PULSE 92; TEMP 97
--- NOTE | 2016-08-22 10:28 | DS ---
[facility] Detox Discharge Summary Admission Date: 08/18/16 Discharge Date: 08/22/16 - History Present History: Alcohol Dependence, Cannabis Dependence - Physical Exam Results Vital Signs: Vital Signs Temperature 97 F L 08/22/16 09:57 Pulse Rate 92 H 08/22/16 09:57 Respiratory Rate 16 08/22/16 09:57 Blood Pressure 101/70 08/22/16 09:57 O2 Sat by Pulse Oximetry (%) - Treatment Hospital Course: Detox Protocol Followed, Detoxed Safely, Responded well, Discharged Condition Good - Medication Discharge Medications: Ambulatory Orders Budesonide/Formeterol Fumarate [SYMBICORT 80/4.5mcg -] 1 inh PO BID 11/14/15 Hydroxyzine Pamoate [Vistaril -] 50 mg PO BID 11/14/15 Cyclobenzaprine HCl [Flexeril -] 10 mg PO BID 04/08/16 Divalproex [Depakote -] 500 mg PO BID #60 tablet.ec 07/01/16 Quetiapine Fumarate [Seroquel] 100 mg PO BID #60 tablet 07/01/16 Trazodone HCl [Desyrel -] 150 mg PO HS #30 tablet 07/01/16 Albuterol Sulfate [Proventil HFA Inhaler -] 1 - 2 inh PO QID #1 inhaler Divalproex [Depakote -] 500 mg PO BID #60 tablet.ec 08/19/16 Gabapentin 300 mg PO TID #90 ml 08/19/16 Quetiapine Fumarate [Seroquel] 100 mg PO BID #60 tablet 08/19/16 Trazodone HCl [Desyrel -] 150 mg PO HS #30 tablet 08/19/16 - Diagnosis (1) Alcohol dependence with uncomplicated withdrawal Status: Acute (2) Asthma Status: Acute Qualifiers: Asthma severity: unspecified severity Asthma complication type: uncomplicated Qualified Code(s): J45.909 - Unspecified asthma, uncomplicated (3) Bipolar disorder Status: Chronic Qualifiers: Current episode severity: unspecified (4) Cannabis dependence Status: Chronic (5) Cocaine dependence with withdrawal Status: Acute (6) Low back pain Status: Acute Qualifiers: Chronicity: unspecified (7) Nicotine dependence Status: Acute Qualifiers: Nicotine product type: cigarettes Substance use status: uncomplicated Qualified Code(s): F17.210 - Nicotine dependence, cigarettes, uncomplicated (8) Seizure Status: Chronic - AMA Did Patient Leave Against Medical Advice: No
== END 2016-08-22 10:05 | disposition home or self-care (01) | DRG 774 ==
LOC: YASAS 12:58 → Y6N 16:35
PROVIDERS: ADMIT Internal Medicine; ATTEND Internal Medicine Addiction Medicine
PROC: HZ2ZZZZ Detoxification Services for Substance Abuse Treatment (ICD-10-PCS; principal; 2016-08-18)
DX: F10.230 Alcohol dependence with withdrawal, uncomplicated (principal); F13.20 Sedative, hypnotic or anxiolytic dependence, uncomplicated; F14.20 Cocaine dependence, uncomplicated; F12.20 Cannabis dependence, uncomplicated; F17.210 Nicotine dependence, cigarettes, uncomplicated; F43.10 Post-traumatic stress disorder, unspecified; F31.9 Bipolar disorder, unspecified; F19.24 Other psychoactive substance dependence with psychoactive substance-induced mood disorder; F19.282 Other psychoactive substance dependence with psychoactive substance-induced sleep disorder; J45.909 Unspecified asthma, uncomplicated; G40.909 Epilepsy, unspecified, not intractable, without status epilepticus; M54.41 Lumbago with sciatica, right side; Z87.898 Personal history of other specified conditions; Z86.79 Personal history of other diseases of the circulatory system; Z91.5 Personal history of self-harm; Z91.14 Patient's other noncompliance with medication regimen
CPT/HCPCS: 36415; 80053; 81003; 85027; 86593; 93005; 93010

== ENCOUNTER 2016-09-22 12:47 | Inpatient (IN) | payer OTHER ==
[2016-09-22 13:15] VITALS: BMI 18.5
[2016-09-22] MEDS ORDERED: MAGNESIUM CITRATE 300 ML BOTTLE PO PRN (16:01)
[2016-09-22] MEDS ORDERED: LOPERAMIDE HCL 2 MG CAPSULE PO PRN (16:01)
[2016-09-22] MEDS ORDERED: MAG HYDROX/AL HYDROX/SIMETH 30 ML UNIT-DOSE CUP PO PRN (16:01)
[2016-09-22] MEDS ORDERED: MAGNESIUM HYDROX 2400MG/30ML ORAL SUSPENSION 30 ML CUP PO PRN (16:01)
[2016-09-22] MEDS ORDERED: chlordiazePOXIDE HCL 25 MG CAPSULE PO PRN (16:01)
[2016-09-22] MEDS ORDERED: guaiFENesin/D-METHORPHAN HB 10 ML UNIT-DOSE CUPS PO PRN (16:01)
[2016-09-22] MEDS ORDERED: P-EPHED 60MG/TRIPROLIDI 2.5MG TABLET PO PRN (16:01)
[2016-09-22] MEDS ORDERED: IBUPROFEN 400 MG TABLET (FP) PO PRN (16:01)
[2016-09-22] MEDS ORDERED: chlordiazePOXIDE HCL 25 MG CAPSULE PO ONE (16:01)
[2016-09-22] MEDS ORDERED: MENTHOL/PHENOL 1 EACH UD MM PRN (16:01)
[2016-09-22] MEDS ORDERED: diphenhydrAMINE HCL 50 MG CAPSULE PO PRN (16:01)
[2016-09-22] MEDS ORDERED: hydrOXYzine PAMOATE 50 MG CAPSULE (FP) PO PRN (16:05)
[2016-09-22] MEDS ORDERED: ALBUTEROL SO4 6.7 GM HFA INHALER IH PRN (16:06)
--- NOTE | 2016-09-22 16:13 | HP ---
CIWA Score - CIWA Score Nausea/Vomitin Muscle Tremors: 4-Moderate,w/Arms Extend Anxiety: 4-Mod. Anxious/Guarded Agitation: 4-Moderately Restless Paroxysmal Sweats: 3 Orientation: 0-Oriented Tacttile Disturbances: 0-None Auditory Disturbances: 0-None Visual Disturbances: 0-None Headache: 0-None Present CIWA-Ar Total Score: 17 Admission ROS BHS - HPI Chief Complaint: Withdrawal sx. Allergies/Adverse Reactions: Allergies Allergy/AdvReac Type Severity Reaction Status Date / Time No Known Allergies Allergy Verified 09/22/16 15:53 History of Present Illness: 51 y/o woman with a long hx. of alcoholism is admitted for detox.Pt. has been in previous detox,denies significant sobriety. Exam Limitations: No Limitations - Ebola screening Have you traveled outside of the country in the last 21 days: No Have you had contact with anyone from an Ebola affected area: No Have you been sick,other than usual withdrawal symptoms: No Do you have a fever: No - Review of Systems Constitutional: Diaphoresis EENT: reports: No Symptoms Reported Respiratory: reports: No Symptoms reported Cardiac: reports: No Symptoms Reported GI: reports: Nausea, Abdominal cramping : reports: Other (vaginal yeast) Musculoskeletal: reports: Back Pain Integumentary: reports: Sweating Neuro: reports: Seizure (last one 2015), Tremors Endocrine: reports: No Symptoms Reported Hematology: reports: No Symptoms Reported Psychiatric: reports: No Sypmtoms Reported Other Systems: Reviewed and Negative Patient History - Patient Medical History Hx Anemia: No Hx Asthma: Yes Hx Chronic Obstructive Pulmonary Disease (COPD): No Hx Cancer: No Hx Cardiac Disorders: No Hx Congestive Heart Failure: No Hx Hypertension: No Hx Hypercholesterolemia: No Hx Pacemaker: No HX Cerebrovascular Accident: No Hx Seizures: Yes (2years ago) Hx Dementia: No Hx Diabetes: No Hx Gastrointestinal Disorders: No Hx Liver Disease: No Hx Genitourinary Disorders: No Hx Sexually Transmitted Disorders: Yes (Chlamydia) Hx Renal Disease (ESRD): No Hx Thyroid Disease: No Hx Human Immunodeficiency Virus (HIV): No Hx Hepatitis C: No Hx Depression: Yes Hx Suicide Attempt: No Hx Bipolar Disorder: Yes (on meds,non compliance) Hx Schizophrenia: No - Patient Surgical History Past Surgical History: No Hx Neurologic Surgery: No Hx Cataract Extraction: No Hx Cardiac Surgery: No Hx Lung Surgery: No Hx Breast Surgery: No Hx Breast Biopsy: No Hx Abdominal Surgery: No Hx Appendectomy: No Hx Cholecystectomy: No Hx Genitourinary Surgery: No Hx Section: No Hx Orthopedic Surgery: No Hx Hysterectomy: No Anesthesia Reaction: No - PPD History Date: 06/02/16 Results: 0 mm PPD to be Administered?: No - Reproductive History Patient is a Female of Child Bearing Age (11 -55 yrs old): Yes Last Menstrual Period: 08/04/16 Patient : No - Smoking Cessation Smoking history: Former smoker Have you smoked in the past 12 months: Yes If you are a former smoker, when did you quit?: 05/12/16 Hx Chewing Tobacco Use: No Initiated information on smoking cessation: No - Substance & Tx. History Hx Alcohol Use: Yes Hx Substance Use: Yes Substance Use Type: Alcohol, Cocaine, Marijuana Hx Substance Use Treatment: Yes (Detox) - Substances Abused Alcohol Route: Oral Frequency: Daily Amount used: cognac(1 pint)/rum(1 pint) Age of first use: 12 Date of Last Use: 09/22/16 Cocaine Route: Smoking Frequency: Daily Amount used: $200 Age of first use: 19 Date of Last Use: 09/22/16 Marijuana/Hashish Route: Smoking Frequency: Daily Amount used: $25 Age of first use: 15 Date of Last Use: 09/22/16 Family Disease History - Family Disease History Family Disease History: Heart Disease: Father (HTN,MO,alcohol,,brain ca) , CA: Father, Other: Father Admission Physical Exam S - Vital Signs Vital Signs: Vital Signs - 24 hr 09/22/16 13:12 Temperature 97.4 F L Pulse Rate 68 Respiratory 20 Rate Blood Pressure 121/75 - Physical General Appearance: Yes: Tremorous, Irritable, Sweating, Anxious HEENTM: Yes: Within Normal Limits Respiratory: Yes: Chest Non-Tender, Lungs Clear, Normal Breath Sounds Neck: Yes: Supple Breast: Yes: Breast Exam Deferred Cardiology: Yes: Regular Rhythm, Regular Rate, S1, S2 Abdominal: Yes: Normal Bowel Sounds, Non Tender, Soft Genitourinary: Yes: Within Normal Limits Back: Yes: Within Normal Limits Musculoskeletal: Yes: full range of Motion Extremities: Yes: Tremors Neurological: Yes: Fully Oriented, Alert Integumentary: Yes: Diaphoresis Lymphatic: Yes: Within Normal Limits - Diagnostic (1) Alcohol dependence with uncomplicated withdrawal Current Visit: Yes Status: Acute (2) Asthma Current Visit: Yes Status: Acute Qualifiers: Asthma severity: unspecified severity Asthma complication type: uncomplicated Qualified Code(s): J45.909 - Unspecified asthma, uncomplicated (3) Cocaine dependence with withdrawal Current Visit: Yes Status: Acute (4) Low back pain Current Visit: Yes Status: Acute Qualifiers: Chronicity: unspecified (5) Nicotine dependence Current Visit: Yes Status: Acute Qualifiers: Nicotine product type: cigarettes Substance use status: uncomplicated Qualified Code(s): F17.210 - Nicotine dependence, cigarettes, uncomplicated Cleared for Admission BHS - Detox or Rehab [facility] Level of Care: Medically Managed Detox Regimen/Protocol: Valium BHS Breath Alcohol Content Breath Alcohol Content: 0 Urine Pregancy Test - Result Urine Test Results: Negative- NO Line Present Urine Drug Screen - Results Drug Screen Negative: No Urine Drug Screen Results: THC-Marijuana, BARRY-Cocaine
[2016-09-22] MEDS ORDERED: diazePAM 5 MG TABLET PO ONE (16:19)
[2016-09-22] MEDS ORDERED: chlordiazePOXIDE HCL 25 MG CAPSULE PO SCH (17:00)
[2016-09-22] MEDS: MICONAZOLE NITRATE 2% VAGINAL CREAM 45 GM TUBE VG SCH (22:24)
[2016-09-22] MEDS: GABAPENTIN 100 MG CAPSULE (FP) PO SCH (22:25)
[2016-09-22] MEDS: THIAMINE HCL 100 MG TABLET (FP) PO SCH (22:25)
[2016-09-22] MEDS: diazePAM 5 MG TABLET PO SCH (22:26)
[2016-09-22] MEDS: BUDESONIDE/FORMETEROL FUMARATE 80/4.5 mcg INHALER IH SCH (22:26)
[2016-09-23] MEDS: diazePAM 5 MG TABLET PO PRN ×2 (02:15→09:17)
[2016-09-23] MEDS: diazePAM 5 MG TABLET PO SCH ×3 (05:54→23:16)
[2016-09-23] MEDS: BUDESONIDE/FORMETEROL FUMARATE 80/4.5 mcg INHALER IH SCH ×2 (09:17→23:26)
[2016-09-23] MEDS: GABAPENTIN 100 MG CAPSULE (FP) PO SCH ×2 (09:17→23:16)
[2016-09-23] MEDS: PRENATAL VITAMINS W/ FOLIC ACID TABLET (FP) PO SCH (09:18)
[2016-09-23] MEDS ORDERED: GABAPENTIN 300 MG CAPSULE (FP) PO SCH (11:00)
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
[2016-09-23] MEDS: CITALOPRAM HYDROBROMIDE 20 MG TABLET (FP) PO SCH (11:55)
[2016-09-23] MEDS: QUEtiapine FUMARATE 100 MG TABLET (FP) PO SCH ×2 (11:55→23:16)
[2016-09-23] MEDS: ARIPiprazole 10 MG TABLET PO SCH (11:55)
[2016-09-23] MEDS: DIVALPROEX SODIUM 500 MG TABLET E.C. PO SCH ×2 (11:55→23:15)
[2016-09-23] MEDS: AMMONIUM LACTATE 12% LOTION 225 GM BOTTLE TP SCH (12:24)
[2016-09-23 14:18] LABS: MCH 29.2 pg (25.7-33.7); MCHC 32.4 g/dl (32.0-36.0); MEAN PLT VOLUME 8.7 fl (7.5-11.1); PLATELET COUNT 230 K/MM3 (134-434); RDW 16.1 % (11.6-15.6); WHITE BLOOD COUNT 8.3 K/mm3 (4.0-10.0)
[2016-09-23 14:38] LABS: ALBUMIN 3.4 g/dl (3.4-5.0); ALK PHOS 48 U/L (45-117); ANION GAP 10 (8-16); BILIRUBIN,TOTAL 0.4 mg/dL (0.2-1.0); CALCIUM 8.7 mg/dL (8.5-10.1); CO2 28 mmol/L (21-32); COCKROFT - GAULT 65.7815; CREATININE 0.8 mg/dL (0.55-1.02); GLUCOSE,RANDOM 105 mg/dL (74-106); SGOT/AST 13 U/L (15-37); SGPT/ALT 21 U/L (12-78); TOT PROT 6.2 g/dl (6.4-8.2)
[2016-09-23 14:42] LABS: HIV 1 & 2 AB NEGATIVE; HIV 1 AGp24 NEGATIVE
[2016-09-23] MEDS: CYCLOBENZAPRINE HCL 10 MG TABLET (FP) PO SCH ×2 (15:14→23:16)
[2016-09-23] MEDS ORDERED: chlordiazePOXIDE HCL 25 MG CAPSULE PO SCH (17:00)
--- NOTE | 2016-09-23 17:01 | PN ---
S CIWA - CIWA Score Nausea/Vomitin-Mild Nausea/No Vomiting Muscle Tremors: 2 Anxiety: 3 Agitation: 4-Moderately Restless Paroxysmal Sweats: 3 Orientation: 0-Oriented Tacttile Disturbances: 3-Moderate Itch/Numb/Burn Auditory Disturbances: 1-Very Mild Visual Disturbances: 0-None Headache: 3-Moderate CIWA-Ar Total Score: 20 BHS Progress Note (SOAP) Subjective: Interrupted Sleep, Body Aches, H/A, Stomach Cramping, Nausea, Diarrhea, Tremors. Objective: PT. A & O X 3, OBSERVED AMBULATING ON UNIT. NO ACUTE DISTRESS. 09/23/16 16:59 Vital Signs Temperature 98 F 09/23/16 15:49 Pulse Rate 80 09/23/16 15:49 Respiratory Rate 16 09/23/16 15:49 Blood Pressure 118/79 09/23/16 15:49 O2 Sat by Pulse Oximetry (%) Laboratory Tests 09/23/16 09/23/16 09/23/16 07:12 07:12 07:12 WBC 8.3 RBC 4.06 Hgb 11.8 Hct 36.5 MCV 90.0 MCHC 32.4 RDW 16.1 H Plt Count 230 MPV 8.7 Sodium 141 Potassium 4.2 Chloride 103 Carbon Dioxide 28 Anion Gap 10 BUN 22 H Creatinine 0.8 Creat Clearance w eGFR > 60 Random Glucose 105 D Calcium 8.7 Total Bilirubin 0.4 D AST 13 L ALT 21 D Alkaline Phosphatase 48 Total Protein 6.2 L Albumin 3.4 RPR Titer Nonreactive HIV 1&2 Antibody Screen HIV P24 Antigen 09/23/16 07:12 WBC RBC Hgb Hct MCV MCHC RDW Plt Count MPV Sodium Potassium Chloride Carbon Dioxide Anion Gap BUN Creatinine Creat Clearance w eGFR Random Glucose Calcium Total Bilirubin AST ALT Alkaline Phosphatase Total Protein Albumin RPR Titer HIV 1&2 Antibody Screen Negative HIV P24 Antigen Negative LABS NOTED. 09/23/16 17:01 Assessment: 09/23/16 17:00 WITHDRAWAL SYMPTOMS. Plan: CONTINUE DETOX. INCREASE PO FLUID INTAKE.
[2016-09-23] MEDS ORDERED: ONDANSETRON *ODT* 4 MG TABLET SL ONE (22:34)
[2016-09-23] MEDS: traZODone HCL 50 MG TABLET (FP) PO SCH (23:16)
[2016-09-23] MEDS: MICONAZOLE NITRATE 2% VAGINAL CREAM 45 GM TUBE VG SCH (23:16)
[2016-09-23] MEDS: THIAMINE HCL 100 MG TABLET (FP) PO SCH (23:17)
[2016-09-23] MEDS: hydrOXYzine PAMOATE 25 MG CAPSULE (FP) PO SCH (23:17)
[2016-09-24] MEDS: CYCLOBENZAPRINE HCL 10 MG TABLET (FP) PO SCH ×3 (05:55→22:30)
[2016-09-24] MEDS: diazePAM 5 MG TABLET PO PRN (05:55)
[2016-09-24] MEDS: ACETAMINOPHEN 325 MG TABLET (FP) PO PRN (05:56)
[2016-09-24] MEDS: BUDESONIDE/FORMETEROL FUMARATE 80/4.5 mcg INHALER IH SCH ×2 (10:16→22:31)
[2016-09-24] MEDS: hydrOXYzine PAMOATE 25 MG CAPSULE (FP) PO SCH ×2 (10:17→22:34)
[2016-09-24] MEDS: CITALOPRAM HYDROBROMIDE 20 MG TABLET (FP) PO SCH (10:17)
[2016-09-24] MEDS: QUEtiapine FUMARATE 100 MG TABLET (FP) PO SCH ×2 (10:17→22:30)
[2016-09-24] MEDS: PRENATAL VITAMINS W/ FOLIC ACID TABLET (FP) PO SCH (10:17)
[2016-09-24] MEDS: diazePAM 5 MG TABLET PO SCH ×2 (10:17→22:32)
[2016-09-24] MEDS: GABAPENTIN 100 MG CAPSULE (FP) PO SCH ×2 (10:17→22:31)
[2016-09-24] MEDS: ARIPiprazole 10 MG TABLET PO SCH (10:17)
[2016-09-24] MEDS: AMMONIUM LACTATE 12% LOTION 225 GM BOTTLE TP SCH (10:18)
[2016-09-24] MEDS: DIVALPROEX SODIUM 500 MG TABLET E.C. PO SCH ×2 (10:18→22:30)
--- NOTE | 2016-09-24 10:47 | PN ---
S CIWA - CIWA Score Nausea/Vomitin-No Nausea/No Vomiting Muscle Tremors: 4-Moderate,w/Arms Extend Anxiety: 3 Agitation: 4-Moderately Restless Paroxysmal Sweats: 3 Orientation: 0-Oriented Tacttile Disturbances: 0-None Auditory Disturbances: 0-None Visual Disturbances: 0-None Headache: 0-None Present CIWA-Ar Total Score: 14 BHS Progress Note (SOAP) Subjective: irritable agitation sweats nausea headache Objective: 09/24/16 10:46 Vital Signs Temperature 98.2 F 09/24/16 09:51 Pulse Rate 80 09/24/16 09:51 Respiratory Rate 18 09/24/16 09:51 Blood Pressure 137/76 09/24/16 09:51 O2 Sat by Pulse Oximetry (%) Laboratory Tests 09/23/16 09/23/16 09/23/16 07:12 07:12 07:12 WBC 8.3 RBC 4.06 Hgb 11.8 Hct 36.5 MCV 90.0 MCHC 32.4 RDW 16.1 H Plt Count 230 MPV 8.7 Sodium 141 Potassium 4.2 Chloride 103 Carbon Dioxide 28 Anion Gap 10 BUN 22 H Creatinine 0.8 Creat Clearance w eGFR > 60 Random Glucose 105 D Calcium 8.7 Total Bilirubin 0.4 D AST 13 L ALT 21 D Alkaline Phosphatase 48 Total Protein 6.2 L Albumin 3.4 RPR Titer Nonreactive HIV 1&2 Antibody Screen HIV P24 Antigen 09/23/16 07:12 WBC RBC Hgb Hct MCV MCHC RDW Plt Count MPV Sodium Potassium Chloride Carbon Dioxide Anion Gap BUN Creatinine Creat Clearance w eGFR Random Glucose Calcium Total Bilirubin AST ALT Alkaline Phosphatase Total Protein Albumin RPR Titer HIV 1&2 Antibody Screen Negative HIV P24 Antigen Negative awake/alert ambulating no acute distress labs pending Assessment: 09/24/16 10:47 withdrawal sx Plan: continue detox increase fluids labs pending
[2016-09-24 13:18] LABS: URINE APPEARANCE CLEAR; URINE BILIRUBIN NEGATIVE (NEGATIVE); URINE BLOOD NEGATIVE (NEGATIVE); URINE COLOR STRAW; URINE GLUCOSE (UA) NEGATIVE (NEGATIVE); URINE KETONE NEGATIVE (NEGATIVE); URINE NITRITE NEGATIVE (NEGATIVE); URINE PROTEIN NEGATIVE (NEGATIVE); URINE UROBILINOGEN NEGATIVE E.U./dl (0.2-1.0)
[2016-09-24 13:39] LABS: URINE LEUK ESTERASE TRACE (NEGATIVE)
[2016-09-24 13:43] LABS: URINE MUCUS RARE; URINE RBC <1 /hpf (0-3); URINE WBC 3 /hpf (3-5)
--- NOTE | 2016-09-24 14:24 | EKG ---
Test Reason : Blood Pressure : / mmHG Vent. Rate : 066 BPM Atrial Rate : 066 BPM P-R Int : 132 ms QRS Dur : 064 ms QT Int : 396 ms P-R-T Axes : 065 076 042 degrees QTc Int : 415 ms NORMAL SINUS RHYTHM POSSIBLE LEFT ATRIAL ENLARGEMENT CANNOT RULE OUT SEPTAL INFARCT , AGE UNDETERMINED ABNORMAL ECG WHEN COMPARED WITH ECG OF 18-AUG-2016 17:15, T WAVE VARIATION Confirmed by ISACC SAVAGE, KATY ([id number]) on 09/24/2016 2:23:49 PM Referred By: Confirmed By:KATY DEXTER MD
[2016-09-24] MEDS ORDERED: chlordiazePOXIDE 5 MG CAPSULE PO SCH (17:00)
[2016-09-24] MEDS: traZODone HCL 50 MG TABLET (FP) PO SCH (22:30)
[2016-09-24] MEDS: MICONAZOLE NITRATE 2% VAGINAL CREAM 45 GM TUBE VG SCH (22:31)
[2016-09-24] MEDS: THIAMINE HCL 100 MG TABLET (FP) PO SCH (22:32)
[2016-09-25] MEDS: CYCLOBENZAPRINE HCL 10 MG TABLET (FP) PO SCH ×3 (06:04→22:20)
[2016-09-25] MEDS: ACETAMINOPHEN 325 MG TABLET (FP) PO PRN (06:04)
--- NOTE | 2016-09-25 09:39 | PN ---
[facility] Progress Note (SOAP) Subjective: interrupted sleep, sweats, lbp, cramps Objective: 09/25/16 09:38 Vital Signs Temperature 98.2 F 09/25/16 06:00 Pulse Rate 78 09/25/16 06:00 Respiratory Rate 16 09/25/16 06:00 Blood Pressure 107/61 09/25/16 06:00 O2 Sat by Pulse Oximetry (%) Laboratory Tests 09/23/16 09/23/16 09/23/16 07:12 07:12 07:12 WBC 8.3 RBC 4.06 Hgb 11.8 Hct 36.5 MCV 90.0 MCHC 32.4 RDW 16.1 H Plt Count 230 MPV 8.7 Sodium 141 Potassium 4.2 Chloride 103 Carbon Dioxide 28 Anion Gap 10 BUN 22 H Creatinine 0.8 Creat Clearance w eGFR > 60 Random Glucose 105 D Calcium 8.7 Total Bilirubin 0.4 D AST 13 L ALT 21 D Alkaline Phosphatase 48 Total Protein 6.2 L Albumin 3.4 Urine Color Urine Appearance Urine pH Ur Specific [employer] Urine Protein Urine Glucose (UA) Urine Ketones Urine Blood Urine Nitrite Urine Bilirubin Urine Urobilinogen Ur Leukocyte Esterase Urine RBC Urine WBC Ur Epithelial Cells Urine Mucus RPR Titer Nonreactive HIV 1&2 Antibody Screen HIV P24 Antigen 09/23/16 09/24/16 07:12 07:00 WBC RBC Hgb Hct MCV MCHC RDW Plt Count MPV Sodium Potassium Chloride Carbon Dioxide Anion Gap BUN Creatinine Creat Clearance w eGFR Random Glucose Calcium Total Bilirubin AST ALT Alkaline Phosphatase Total Protein Albumin Urine Color Straw Urine Appearance Clear Urine pH 7.0 Ur Specific [employer] 1.015 Urine Protein Negative Urine Glucose (UA) Negative Urine Ketones Negative Urine Blood Negative Urine Nitrite Negative Urine Bilirubin Negative Urine Urobilinogen Negative Ur Leukocyte Esterase Trace H Urine RBC <1 Urine WBC 3 Ur Epithelial Cells Rare Urine Mucus Rare RPR Titer HIV 1&2 Antibody Screen Negative HIV P24 Antigen Negative 09/25/16 09:44 pt aox3 ambulating with a limp Assessment: 09/25/16 09:39 withdrawal sx;s cramps lbp 09/25/16 09:45 Plan: cont. detox increase fluids flexeril prn gabapentin tid d/c in am
[2016-09-25] MEDS: CITALOPRAM HYDROBROMIDE 20 MG TABLET (FP) PO SCH (10:37)
[2016-09-25] MEDS: BUDESONIDE/FORMETEROL FUMARATE 80/4.5 mcg INHALER IH SCH ×2 (10:37→23:24)
[2016-09-25] MEDS: QUEtiapine FUMARATE 100 MG TABLET (FP) PO SCH ×2 (10:37→22:20)
[2016-09-25] MEDS: ARIPiprazole 10 MG TABLET PO SCH (10:37)
[2016-09-25] MEDS: GABAPENTIN 100 MG CAPSULE (FP) PO SCH ×2 (10:37→22:19)
[2016-09-25] MEDS: diazePAM 5 MG TABLET PO SCH ×2 (10:38→22:20)
[2016-09-25] MEDS: DIVALPROEX SODIUM 500 MG TABLET E.C. PO SCH ×2 (10:38→22:20)
[2016-09-25] MEDS: PRENATAL VITAMINS W/ FOLIC ACID TABLET (FP) PO SCH (10:38)
[2016-09-25] MEDS: hydrOXYzine PAMOATE 25 MG CAPSULE (FP) PO SCH ×2 (10:39→22:19)
[2016-09-25] MEDS: AMMONIUM LACTATE 12% LOTION 225 GM BOTTLE TP SCH (10:41)
[2016-09-25] MEDS ORDERED: chlordiazePOXIDE HCL 10 MG CAPSULE PO SCH (17:00)
[2016-09-25] MEDS: THIAMINE HCL 100 MG TABLET (FP) PO SCH (22:19)
[2016-09-25] MEDS: traZODone HCL 50 MG TABLET (FP) PO SCH (22:20)
[2016-09-25] MEDS: MICONAZOLE NITRATE 2% VAGINAL CREAM 45 GM TUBE VG SCH (23:24)
[2016-09-26] MEDS: CYCLOBENZAPRINE HCL 10 MG TABLET (FP) PO SCH (05:38)
--- NOTE | 2016-09-26 08:44 | DS ---
[facility] Detox Discharge Summary Admission Date: 09/22/16 Discharge Date: 09/26/16 - History Present History: Alcohol Dependence, Cannabis Dependence, Cocaine Dependence - Physical Exam Results Vital Signs: Vital Signs Temperature 98.1 F 09/26/16 06:30 Pulse Rate 89 09/26/16 06:30 Respiratory Rate 18 09/26/16 06:30 Blood Pressure 122/79 09/26/16 06:30 O2 Sat by Pulse Oximetry (%) - Treatment Hospital Course: Detox Protocol Followed, Detoxed Safely, Responded well, Discharged Condition Good, Rehab Referral Accepted - Medication Discharge Medications: Ambulatory Orders Budesonide/Formeterol Fumarate [SYMBICORT 80/4.5mcg -] 1 inh PO BID 11/14/15 Hydroxyzine Pamoate [Vistaril -] 75 mg PO BID 11/14/15 Cyclobenzaprine HCl [Flexeril -] 10 mg PO TID 04/08/16 Albuterol Sulfate [Proventil HFA Inhaler -] 1 - 2 inh PO QID #1 inhaler Divalproex [Depakote -] 500 mg PO BID #60 tablet.ec 08/19/16 Gabapentin 300 mg PO TID #90 ml 08/19/16 Quetiapine Fumarate [Seroquel] 100 mg PO BID #60 tablet 08/19/16 Trazodone HCl [Desyrel -] 150 mg PO HS #30 tablet 08/19/16 Gabapentin [Neurontin] 300 mg PO BID 09/22/16 Aripiprazole [Abilify -] 10 mg PO DAILY #30 tablet 09/23/16 Citalopram Hydrobromide [Celexa -] 40 mg PO DAILY #30 tablet 09/23/16 Cyclobenzaprine HCl [Flexeril 10 mg] 10 mg PO TID PRN #90 tab 09/23/16 Divalproex *ER* [Depakote *ER* -] 500 mg PO DAILY #60 tablet.sa 09/23/16 Divalproex [Depakote -] 250 mg PO BID #60 tablet.ec 09/23/16 Gabapentin [Neurontin -] 300 mg PO BID #60 cap 09/23/16 Hydroxyzine Pamoate [Vistaril -] 75 mg PO BID #60 cap 09/23/16 Quetiapine Fumarate [Seroquel] 100 mg PO BID #60 tablet 09/23/16 Trazodone HCl [Desyrel -] 150 mg PO HS #30 tablet 09/23/16 - Diagnosis (1) Alcohol dependence with uncomplicated withdrawal Current Visit: Yes Status: Chronic (2) Asthma Current Visit: Yes Status: Chronic Qualifiers: Asthma severity: unspecified severity Asthma complication type: uncomplicated Qualified Code(s): J45.909 - Unspecified asthma, uncomplicated (3) Cocaine dependence with withdrawal Current Visit: Yes Status: Chronic (4) Low back pain Current Visit: Yes Status: Chronic Qualifiers: Chronicity: unspecified Back pain laterality: unspecified (5) Nicotine dependence Current Visit: Yes Status: Acute Qualifiers: Nicotine product type: cigarettes Substance use status: uncomplicated Qualified Code(s): F17.210 - Nicotine dependence, cigarettes, uncomplicated (6) Substance-induced sleep disorder Current Visit: No Status: Acute (7) Bipolar II disorder Current Visit: No Status: Chronic (8) Bipolar disorder Current Visit: No Status: Chronic Qualifiers: Current episode severity: unspecified (9) Cannabis dependence Current Visit: No Status: Chronic (10) PTSD (post-traumatic stress disorder) Current Visit: No Status: Chronic (11) Seizure Current Visit: No Status: Chronic (12) Substance induced mood disorder Current Visit: No Status: Chronic (13) Syncope Current Visit: Yes Status: Chronic (14) Weight loss Current Visit: Yes Status: Chronic - AMA Did Patient Leave Against Medical Advice: No
[2016-09-26] MEDS: ACETAMINOPHEN 325 MG TABLET (FP) PO PRN (08:54)
[2016-09-26 09:58] VITALS: BP 133/95; PULSE 107; TEMP 97
[2016-09-26] MEDS ORDERED: diazePAM 5 MG TABLET PO SCH (10:00)
== END 2016-09-26 09:30 | disposition home or self-care (01) | DRG 774 ==
LOC: YASAS 12:47 → Y6N 17:20
PROVIDERS: ADMIT Internal Medicine; ATTEND Internal Medicine Addiction Medicine
PROC: HZ2ZZZZ Detoxification Services for Substance Abuse Treatment (ICD-10-PCS; principal; 2016-09-26)
DX: F10.230 Alcohol dependence with withdrawal, uncomplicated (principal); F14.23 Cocaine dependence with withdrawal; F12.20 Cannabis dependence, uncomplicated; F17.210 Nicotine dependence, cigarettes, uncomplicated; F19.24 Other psychoactive substance dependence with psychoactive substance-induced mood disorder; F31.9 Bipolar disorder, unspecified; G40.909 Epilepsy, unspecified, not intractable, without status epilepticus; M54.5 Low back pain; Z68.1 Body mass index [BMI] 19.9 or less, adult; J45.909 Unspecified asthma, uncomplicated; R63.4 Abnormal weight loss
CPT/HCPCS: 36415; 80053; 81003; 81015; 85027; 86593; 87389; 93005; 93010

== ENCOUNTER 2023-09-25 15:27 | Inpatient (IN) | payer OTHER ==
[2023-09-25 16:05] VITALS: BMI 15.0
[2023-09-25] MEDS ORDERED: LOPERAMIDE HCL 2 MG CAPSULE PO PRN (16:12)
[2023-09-25] MEDS ORDERED: MAGNESIUM HYDROX 2400MG/30ML ORAL SUSPENSION 30 ML CUP PO PRN (16:12)
[2023-09-25] MEDS ORDERED: P-EPHED 60MG/TRIPROLIDI 2.5MG TABLET PO PRN (16:12)
[2023-09-25] MEDS ORDERED: IBUPROFEN 400 MG TABLET (FP) PO PRN (16:12)
[2023-09-25] MEDS ORDERED: guaiFENesin 600 MG TABLET.ER (FP) PO PRN (16:12)
[2023-09-25] MEDS ORDERED: BISMUTH SUBSALICYLATE 524 MG/30 ML PO PRN (16:12)
[2023-09-25] MEDS ORDERED: BENZONATATE 200 MG CAPSULE PO PRN (16:12)
[2023-09-25] MEDS ORDERED: ONDANSETRON *ODT* 4 MG TABLET SL PRN (16:12)
[2023-09-25] MEDS ORDERED: BENZOCAINE/MENTHOL (CHLORASEPTIC ) LOZENGE MM PRN (16:12)
[2023-09-25] MEDS ORDERED: DICYCLOMINE HCL 10 MG CAPSULE PO PRN (16:12)
[2023-09-25] MEDS ORDERED: POLYETHYLENE GLYCOL (HEALTHYLAX) 3350 17 GM PACKET PO PRN (16:12)
[2023-09-25] MEDS ORDERED: diazePAM 5 MG TABLET ONE (17:16)
[2023-09-25] MEDS ORDERED: METOPROLOL TARTRATE 25 MG TABLET (FP) ONE (17:16)
[2023-09-25] MEDS: METOPROLOL TARTRATE 25 MG TABLET (FP) PO ONE ×2 (17:19→18:36)
[2023-09-25] MEDS: diazePAM 5 MG TABLET PO SCH (17:19)
[2023-09-25] MEDS: ASPIRIN COATED 81 MG TABLET.EC PO SCH (18:36)
[2023-09-25] MEDS: MELATONIN 5 MG TABLETS PO SCH (22:43)
[2023-09-25] MEDS: THIAMINE 100 MG TABLET PO SCH (22:43)
[2023-09-25] MEDS: METHOCARBAMOL 500 MG TABLET PO PRN (23:49)
[2023-09-26] MEDS: PRENATAL VITAMINS W/ FOLIC ACID TABLET (FP) PO SCH (10:12)
[2023-09-26 11:51] LABS: HEMATOCRIT 38.4 % (32.4-45.2); HEMOGLOBIN 12.8 GM/dL (10.7-15.3); MCH 31.3 pg (25.7-33.7); MCHC 33.4 g/dl (32.0-36.0); MEAN CELL VOLUME 93.6 fl (80-96); MEAN PLT VOLUME 7.9 fl (7.5-11.1); PLATELET COUNT 324 10^3/uL (134-434); RDW 14.8 % (11.6-15.6)
[2023-09-26 11:54] LABS: CHLORIDE 109 mmol/L (98-107); POTASSIUM 4.6 mmol/L (3.5-5.1); SODIUM 139 mmol/L (136-145)
[2023-09-26 11:56] LABS: CALCIUM 8.7 mg/dL (8.5-10.1)
[2023-09-26 11:57] LABS: ANION GAP 2 mmol/L (4-13); BLOOD UREA NITROGEN 13.9 mg/dL (7-18); CO2 28 mmol/L (21-32); GLUCOSE,RANDOM 98 mg/dL (74-106)
[2023-09-26 12:00] LABS: CREATININE 0.6 mg/dL (0.55-1.3); SGOT/AST 24 U/L (15-37); SGPT/ALT 28 U/L (13-61)
[2023-09-26 12:01] LABS: BILIRUBIN,TOTAL 0.2 mg/dL (0.2-1)
[2023-09-26 12:03] LABS: ALK PHOS 67 U/L (45-117); TOT PROT 5.8 g/dl (6.4-8.2)
[2023-09-26 12:58] LABS: HIV INTERPRETATION NEGATIVE (NEGATIVE)
[2023-09-26] MEDS: ACETAMINOPHEN 325 MG TABLET (FP) PO PRN (22:19)
[2023-09-27] MEDS: diazePAM 5 MG TABLET PO SCH (05:51)
[2023-09-27] MEDS: diazePAM 5 MG TABLET PO PRN (10:45)
[2023-09-27] MEDS: hydrOXYzine PAMOATE 25 MG CAPSULE (FP) PO PRN (13:26)
[2023-09-27] MEDS: IBUPROFEN 600 MG TABLET (FP) PO PRN (17:36)
[2023-09-27] MEDS: METOPROLOL TARTRATE 25 MG TABLET (FP) PO ONE (20:35)
[2023-09-27] MEDS: amLODIPine BESYLATE 5 MG TABLET (FP) PO ONE (23:24)
[2023-09-28] MEDS: diazePAM 5 MG TABLET PO SCH (05:24)
[2023-09-28] MEDS: metoPROLOL SUCCINATE 25 MG TAB.SR.24H (FP) PO SCH (10:19)
[2023-09-28] MEDS: METHOCARBAMOL 500 MG TABLET PO PRN (17:20)
[2023-09-28] MEDS: diazePAM 5 MG TABLET PO PRN (22:30)
[2023-09-29] MEDS: MAG HYDROX/AL HYDROX/SIMETH 30 ML UNIT-DOSE CUP PO PRN (02:36)
[2023-09-29] MEDS: diazePAM 5 MG TABLET PO ONE (05:27)
[2023-09-29 09:41] VITALS: BP 128/88; PULSE 112; RESP 20; TEMP 97.7
== END 2023-09-29 09:04 | disposition home or self-care (01) | DRG 774 ==
LOC: YASAS 15:27 → Y6N 17:42
PROVIDERS: ADMIT Allergy & Immunology; ATTEND Surgery
PROC: HZ2ZZZZ Detoxification Services for Substance Abuse Treatment (ICD-10-PCS; principal; 2023-09-25)
DX: F10.230 Alcohol dependence with withdrawal, uncomplicated (principal); F14.20 Cocaine dependence, uncomplicated; F12.20 Cannabis dependence, uncomplicated; F17.213 Nicotine dependence, cigarettes, with withdrawal; F19.282 Other psychoactive substance dependence with psychoactive substance-induced sleep disorder; F31.9 Bipolar disorder, unspecified; F41.9 Anxiety disorder, unspecified; F43.10 Post-traumatic stress disorder, unspecified; I10 Essential (primary) hypertension; J45.909 Unspecified asthma, uncomplicated; M54.50 Low back pain, unspecified; G89.29 Other chronic pain; R63.4 Abnormal weight loss; Z68.1 Body mass index [BMI] 19.9 or less, adult; Z91.410 Personal history of adult physical and sexual abuse; Z63.8 Other specified problems related to primary support group; Z63.0 Problems in relationship with spouse or partner
CPT/HCPCS: 36415; 80053; 80305; 80307; 85027; 86780; 86803; 87389; 93005; 93010

== ENCOUNTER 2024-01-28 10:33 | Inpatient (IN) | payer OTHER ==
[2024-01-28 11:08] VITALS: BMI 17.6
[2024-01-28] MEDS ORDERED: diazePAM 5 MG TABLET PO PRN (11:13)
[2024-01-28] MEDS ORDERED: BISMUTH SUBSALICYLATE 262 MG/15 ML BTL PO PRN (11:26)
[2024-01-28] MEDS ORDERED: BENZOCAINE/MENTHOL (CHLORASEPTIC ) LOZENGE MM PRN (11:26)
[2024-01-28] MEDS ORDERED: MAG HYDROX/AL HYDROX/SIMETH 30 ML UNIT-DOSE CUP PO PRN (11:26)
[2024-01-28] MEDS ORDERED: ACETAMINOPHEN 325 MG TABLET (FP) PO PRN (11:26)
[2024-01-28] MEDS ORDERED: LOPERAMIDE HCL 2 MG CAPSULE PO PRN (11:26)
[2024-01-28] MEDS ORDERED: MAGNESIUM HYDROX 2400MG/30ML ORAL SUSPENSION 30 ML CUP PO PRN (11:26)
[2024-01-28] MEDS ORDERED: DICYCLOMINE HCL 10 MG CAPSULE PO PRN (11:26)
[2024-01-28] MEDS ORDERED: BENZONATATE 200 MG CAPSULE PO PRN (11:26)
[2024-01-28] MEDS ORDERED: IBUPROFEN 400 MG TABLET (FP) PO PRN (11:26)
[2024-01-28] MEDS ORDERED: POLYETHYLENE GLYCOL (HEALTHYLAX) 3350 17 GM PACKET PO PRN (11:26)
[2024-01-28] MEDS ORDERED: ONDANSETRON *ODT* 4 MG TABLET SL PRN (11:26)
[2024-01-28] MEDS ORDERED: diazePAM 5 MG TABLET ONE (11:39)
[2024-01-28] MEDS: diazePAM 5 MG TABLET PO SCH (11:41)
[2024-01-28] MEDS ORDERED: ALBUTEROL SO4 HFA INHALER IH PRN (12:16)
[2024-01-28] MEDS: metroNIDAZOLE 250 MG TABLET PO SCH (13:10)
[2024-01-28] MEDS: CALCIUM 500MG/VIT-D 200 UNITS COMBO TABLET (FP) PO SCH (13:11)
[2024-01-28] MEDS: METHOCARBAMOL 500 MG TABLET PO PRN (15:02)
[2024-01-28] MEDS: DIVALPROEX SODIUM 250 MG TABLET E.C. PO ONE (15:30)
[2024-01-28] MEDS: LORazepam 2 MG TABLET PO SCH (16:43)
[2024-01-28] MEDS: IBUPROFEN 600 MG TABLET (FP) PO PRN (16:45)
[2024-01-28] MEDS: MELATONIN 5 MG TABLETS PO SCH (22:30)
[2024-01-28] MEDS: THIAMINE 100 MG TABLET PO SCH (22:31)
[2024-01-28] MEDS: guaiFENesin 600 MG TABLET.ER (FP) PO PRN (22:34)
[2024-01-29] MEDS: FLUTICASONE/UMECLIDIN/VILANTER(100-62.5-25 TRELEGY ELLIPTA) INAHLER IH SCH (10:04)
[2024-01-29] MEDS: PRENATAL VITAMINS W/ FOLIC ACID TABLET (FP) PO SCH (10:04)
[2024-01-29] MEDS: LORazepam 1 MG TABLET PO PRN (13:23)
[2024-01-29 14:58] LABS: HEMATOCRIT 35.7 % (32.4-45.2); HEMOGLOBIN 11.4 GM/dL (10.7-15.3); MCH 29.8 pg (25.7-33.7); MEAN CELL VOLUME 93.1 fl (80-96); MEAN PLT VOLUME 8.1 fl (7.5-11.1); PLATELET COUNT 257 10^3/uL (134-434); RBC 3.84 M/mm3 (3.60-5.2); RDW 14.4 % (11.6-15.6); WHITE BLOOD COUNT 5.2 K/mm3 (4.0-10.0)
[2024-01-29 15:01] LABS: POTASSIUM 4.3 mmol/L (3.5-5.1)
[2024-01-29 15:06] LABS: ALBUMIN 2.6 g/dl (3.4-5.0); BLOOD UREA NITROGEN 15.8 mg/dL (7-18); CALCIUM 8.4 mg/dL (8.5-10.1)
[2024-01-29 15:10] LABS: CREATININE 0.6 mg/dL (0.55-1.3)
[2024-01-29 15:11] LABS: BILIRUBIN,TOTAL 0.2 mg/dL (0.2-1); TOT PROT 5.4 g/dl (6.4-8.2)
[2024-01-30] MEDS: LORazepam 1 MG TABLET PO SCH (05:55)
[2024-01-30] MEDS ORDERED: diazePAM 5 MG TABLET PO SCH (06:00)
[2024-01-30 08:56] VITALS: BP 128/75; PULSE 101; RESP 18; TEMP 97.4
[2024-01-31] MEDS ORDERED: LORazepam 0.5 MG TABLET PO PRN
[2024-01-31] MEDS ORDERED: LORazepam 0.5 MG TABLET PO SCH (05:00)
[2024-01-31] MEDS ORDERED: diazePAM 5 MG TABLET PO SCH (06:00)
[2024-02-01] MEDS ORDERED: LORazepam 0.5 MG TABLET PO ONE (05:00)
[2024-02-01] MEDS ORDERED: diazePAM 5 MG TABLET PO ONE (06:00)
== END 2024-01-30 09:53 | disposition home or self-care (01) | DRG 774 ==
LOC: YASAS 10:33 → Y6N 11:22
PROVIDERS: ADMIT Allergy & Immunology; ATTEND Surgery
PROC: HZ2ZZZZ Detoxification Services for Substance Abuse Treatment (ICD-10-PCS; principal; 2024-01-28)
DX: F10.230 Alcohol dependence with withdrawal, uncomplicated (principal); F14.20 Cocaine dependence, uncomplicated; F12.20 Cannabis dependence, uncomplicated; F19.282 Other psychoactive substance dependence with psychoactive substance-induced sleep disorder; F19.24 Other psychoactive substance dependence with psychoactive substance-induced mood disorder; F31.9 Bipolar disorder, unspecified; F41.9 Anxiety disorder, unspecified; F43.10 Post-traumatic stress disorder, unspecified; I10 Essential (primary) hypertension; J45.909 Unspecified asthma, uncomplicated; M54.50 Low back pain, unspecified; Z62.810 Personal history of physical and sexual abuse in childhood; Z91.410 Personal history of adult physical and sexual abuse; Z63.0 Problems in relationship with spouse or partner; Z63.8 Other specified problems related to primary support group; Z59.02 Unsheltered homelessness
CPT/HCPCS: 36415; 80053; 80305; 80307; 85027; 86780

== ENCOUNTER 2024-03-08 10:48 | Inpatient (IN) | payer OTHER ==
[2024-03-08 11:06] VITALS: BMI 16.0
[2024-03-08] MEDS ORDERED: BENZONATATE 200 MG CAPSULE PO PRN (12:00)
[2024-03-08] MEDS ORDERED: ONDANSETRON *ODT* 4 MG TABLET SL PRN (12:00)
[2024-03-08] MEDS ORDERED: MAG HYDROX/AL HYDROX/SIMETH 30 ML UNIT-DOSE CUP PO PRN (12:00)
[2024-03-08] MEDS ORDERED: NALOXONE (NYS OPIOID OVERDOSE PROGRAM) 4 MG/0.1 ML SPRAY NS PRN (12:00)
[2024-03-08] MEDS ORDERED: MAGNESIUM HYDROX 2400MG/30ML ORAL SUSPENSION 30 ML CUP PO PRN (12:00)
[2024-03-08] MEDS ORDERED: NALOXONE (NARCAN) HCL 4 MG/0.1 ML SPRAY NS PRN (12:00)
[2024-03-08] MEDS ORDERED: POLYETHYLENE GLYCOL (HEALTHYLAX) 3350 17 GM PACKET PO PRN (12:00)
[2024-03-08] MEDS ORDERED: BENZOCAINE/MENTHOL (CHLORASEPTIC ) LOZENGE MM PRN (12:00)
[2024-03-08] MEDS ORDERED: LOPERAMIDE HCL 2 MG CAPSULE PO PRN (12:00)
[2024-03-08] MEDS ORDERED: BISMUTH SUBSALICYLATE 262 MG/15 ML BTL PO PRN (12:00)
[2024-03-08] MEDS ORDERED: DICYCLOMINE HCL 10 MG CAPSULE PO PRN (12:00)
[2024-03-08] MEDS ORDERED: IBUPROFEN 400 MG TABLET (FP) PO PRN (12:00)
[2024-03-08] MEDS ORDERED: guaiFENesin 600 MG TABLET.ER (FP) PO PRN (12:00)
[2024-03-08] MEDS ORDERED: ALBUTEROL SO4 HFA INHALER IH PRN (14:50)
[2024-03-08] MEDS: metoPROLOL SUCCINATE 25 MG TAB.SR.24H (FP) PO SCH (15:36)
[2024-03-08] MEDS: diazePAM 5 MG TABLET PO SCH (17:16)
[2024-03-08] MEDS: CALCIUM 500MG/VIT-D 200 UNITS COMBO TABLET (FP) PO SCH (17:19)
[2024-03-08] MEDS: THIAMINE 100 MG TABLET PO SCH (22:41)
[2024-03-08] MEDS: MELATONIN 5 MG TABLETS PO SCH (22:41)
[2024-03-09] MEDS: diazePAM 5 MG TABLET PO PRN (00:30)
[2024-03-09] MEDS: IBUPROFEN 600 MG TABLET (FP) PO PRN (00:32)
[2024-03-09] MEDS ORDERED: metoPROLOL SUCCINATE 25 MG TAB.SR.24H (FP) PO SCH (10:00)
[2024-03-09] MEDS: PRENATAL VITAMINS W/ FOLIC ACID TABLET (FP) PO SCH (10:17)
[2024-03-09] MEDS: hydrOXYzine PAMOATE 25 MG CAPSULE (FP) PO PRN (10:18)
[2024-03-09] MEDS: ASPIRIN 81 MG CHEWABLE TABLETS PO SCH (10:19)
[2024-03-09] MEDS: ACETAMINOPHEN 325 MG TABLET (FP) PO PRN (10:19)
[2024-03-09] MEDS: FLUTICASONE/UMECLIDIN/VILANTER(100-62.5-25 TRELEGY ELLIPTA) INAHLER IH SCH (10:51)
[2024-03-09 11:19] LABS: HEMATOCRIT 35.4 % (32.4-45.2); HEMOGLOBIN 11.7 GM/dL (10.7-15.3); MCH 30.4 pg (25.7-33.7); MCHC 32.9 g/dl (32.0-36.0); MEAN CELL VOLUME 92.3 fl (80-96); MEAN PLT VOLUME 7.9 fl (7.5-11.1); PLATELET COUNT 274 10^3/uL (134-434); RBC 3.84 M/mm3 (3.60-5.2); RDW 15.5 % (11.6-15.6); WHITE BLOOD COUNT 7.3 K/mm3 (4.0-10.0)
[2024-03-09 11:54] LABS: ALBUMIN 3.2 g/dl (3.4-5.0); CALCIUM 8.7 mg/dL (8.5-10.1)
[2024-03-09 11:55] LABS: BLOOD UREA NITROGEN 10.8 mg/dL (7-18)
[2024-03-09 11:57] LABS: CREATININE 0.6 mg/dL (0.55-1.3)
[2024-03-09 11:59] LABS: BILIRUBIN,TOTAL 0.2 mg/dL (0.2-1); TOT PROT 6.1 g/dl (6.4-8.2)
[2024-03-09] MEDS: METHOCARBAMOL 500 MG TABLET PO PRN (22:31)
[2024-03-10] MEDS: diazePAM 5 MG TABLET PO SCH (05:25)
[2024-03-11] MEDS: diazePAM 5 MG TABLET PO SCH (05:57)
[2024-03-11 13:31] VITALS: BP 144/82; PULSE 90; RESP 18; TEMP 97.8
[2024-03-11] MEDS ORDERED: NALOXONE (NYS OPIOID OVERDOSE PROGRAM) 4 MG/0.1 ML SPRAY NS SCH (17:00)
[2024-03-12] MEDS ORDERED: diazePAM 5 MG TABLET PO ONE (06:00)
== END 2024-03-11 16:27 | disposition home or self-care (01) | DRG 774 ==
LOC: YASAS 10:48 → Y3N 14:03
PROVIDERS: ADMIT Allergy & Immunology; ATTEND Surgery
PROC: HZ2ZZZZ Detoxification Services for Substance Abuse Treatment (ICD-10-PCS; principal; 2024-03-08)
DX: F10.230 Alcohol dependence with withdrawal, uncomplicated (principal); F14.20 Cocaine dependence, uncomplicated; F12.20 Cannabis dependence, uncomplicated; F17.210 Nicotine dependence, cigarettes, uncomplicated; I25.2 Old myocardial infarction; I10 Essential (primary) hypertension; J44.9 Chronic obstructive pulmonary disease, unspecified; J45.20 Mild intermittent asthma, uncomplicated
CPT/HCPCS: 36415; 80053; 80305; 80307; 85027; 86780

== ENCOUNTER 2024-04-09 12:21 | Inpatient (IN) | payer OTHER ==
[2024-04-09 13:57] VITALS: BMI 17.1
[2024-04-09] MEDS ORDERED: LOPERAMIDE HCL 2 MG CAPSULE PO PRN (13:57)
[2024-04-09] MEDS ORDERED: IBUPROFEN 400 MG TABLET (FP) PO PRN (13:57)
[2024-04-09] MEDS ORDERED: DICYCLOMINE HCL 10 MG CAPSULE PO PRN (13:57)
[2024-04-09] MEDS ORDERED: IBUPROFEN 600 MG TABLET (FP) PO PRN (13:57)
[2024-04-09] MEDS ORDERED: METHOCARBAMOL 500 MG TABLET PO PRN (13:57)
[2024-04-09] MEDS ORDERED: POLYETHYLENE GLYCOL (HEALTHYLAX) 3350 17 GM PACKET PO PRN (13:57)
[2024-04-09] MEDS ORDERED: guaiFENesin 600 MG TABLET.ER (FP) PO PRN (13:57)
[2024-04-09] MEDS ORDERED: BENZONATATE 200 MG CAPSULE PO PRN (13:57)
[2024-04-09] MEDS ORDERED: ACETAMINOPHEN 325 MG TABLET (FP) PO PRN (13:57)
[2024-04-09] MEDS ORDERED: MAG HYDROX/AL HYDROX/SIMETH 30 ML UNIT-DOSE CUP PO PRN (13:57)
[2024-04-09] MEDS ORDERED: BENZOCAINE/MENTHOL (CHLORASEPTIC ) LOZENGE MM PRN (13:57)
[2024-04-09] MEDS ORDERED: NALOXONE (NARCAN) HCL 4 MG/0.1 ML SPRAY NS PRN (13:57)
[2024-04-09] MEDS ORDERED: BISMUTH SUBSALICYLATE 262 MG/15 ML BTL PO PRN (13:57)
[2024-04-09] MEDS ORDERED: MAGNESIUM HYDROX 2400MG/30ML ORAL SUSPENSION 30 ML CUP PO PRN (13:57)
[2024-04-09] MEDS: chlordiazePOXIDE HCL 25 MG CAPSULE PO SCH (17:20)
[2024-04-09] MEDS ORDERED: MELATONIN 5 MG TABLETS PO SCH (22:00)
[2024-04-09] MEDS: MELATONIN 5 MG TABLETS PO SCH (22:17)
[2024-04-09] MEDS: THIAMINE 100 MG TABLET PO SCH (22:17)
[2024-04-09] MEDS: ALBUTEROL SO4 HFA INHALER IH PRN (22:18)
[2024-04-10] MEDS: chlordiazePOXIDE HCL 25 MG CAPSULE PO PRN (09:13)
[2024-04-10] MEDS: hydrOXYzine PAMOATE 25 MG CAPSULE (FP) PO PRN (09:13)
[2024-04-10] MEDS: PRENATAL VITAMINS W/ FOLIC ACID TABLET (FP) PO SCH (09:17)
[2024-04-10 09:56] LABS: HEMATOCRIT 37.4 % (32.4-45.2); MCH 30.6 pg (25.7-33.7); MCHC 32.2 g/dl (32.0-36.0); MEAN PLT VOLUME 8.1 fl (7.5-11.1); PLATELET COUNT 278 10^3/uL (134-434); RBC 3.93 M/mm3 (3.60-5.2); RDW 14.5 % (11.6-15.6); WHITE BLOOD COUNT 6.2 K/mm3 (4.0-10.0)
[2024-04-10 10:27] LABS: CHLORIDE 110 mmol/L (98-107); SODIUM 142 mmol/L (136-145)
[2024-04-10 10:30] LABS: ALBUMIN 3.1 g/dl (3.4-5.0); ANION GAP 5 mmol/L (4-13); CALCIUM 9.2 mg/dL (8.5-10.1); CO2 27 mmol/L (21-32); GLUCOSE,RANDOM 88 mg/dL (74-106)
[2024-04-10 10:33] LABS: CREATININE 0.5 mg/dL (0.55-1.3); SGOT/AST 21 U/L (15-37); SGPT/ALT 20 U/L (13-61)
[2024-04-10 10:34] LABS: BILIRUBIN,TOTAL 0.2 mg/dL (0.2-1)
[2024-04-10 10:36] LABS: ALK PHOS 68 U/L (45-117)
[2024-04-10] MEDS: DIVALPROEX NA *ER* EXTEND REL 500 MG TABLET.SA (FP) PO SCH (10:55)
[2024-04-10] MEDS: FLUTICASONE/UMECLIDIN/VILANTER(100-62.5-25 TRELEGY ELLIPTA) INAHLER IH SCH (11:35)
[2024-04-10] MEDS: traZODone HCL 100 MG TABLET (FP) PO SCH (22:17)
[2024-04-11] MEDS: ONDANSETRON *ODT* 4 MG TABLET SL PRN (04:29)
[2024-04-11] MEDS: chlordiazePOXIDE HCL 25 MG CAPSULE PO SCH (05:04)
[2024-04-11] MEDS: CALCIUM 500MG/VIT-D 200 UNITS COMBO TABLET (FP) PO SCH (13:37)
[2024-04-12] MEDS ORDERED: chlordiazePOXIDE HCL 10 MG CAPSULE PO PRN
[2024-04-12] MEDS: chlordiazePOXIDE HCL 10 MG CAPSULE PO SCH (05:48)
[2024-04-12] MEDS: propRANOLol HCL 10 MG TABLET PO SCH (10:05)
[2024-04-12] MEDS: NALOXONE (NYS OPIOID OVERDOSE PROGRAM) 4 MG/0.1 ML SPRAY NS SCH (10:06)
[2024-04-12 11:56] VITALS: BP 132/96; PULSE 104; RESP 20; TEMP 98
[2024-04-13] MEDS ORDERED: chlordiazePOXIDE HCL 10 MG CAPSULE PO SCH (05:00)
[2024-04-14] MEDS ORDERED: chlordiazePOXIDE HCL 10 MG CAPSULE PO ONE (05:00)
== END 2024-04-12 12:25 | disposition home or self-care (01) | DRG 774 ==
LOC: YASAS 12:21 → Y6N 15:18
PROVIDERS: ADMIT Allergy & Immunology; ATTEND Surgery
PROC: HZ2ZZZZ Detoxification Services for Substance Abuse Treatment (ICD-10-PCS; principal; 2024-04-09)
DX: F10.230 Alcohol dependence with withdrawal, uncomplicated (principal); F14.20 Cocaine dependence, uncomplicated; F12.20 Cannabis dependence, uncomplicated; F17.213 Nicotine dependence, cigarettes, with withdrawal; F19.982 Other psychoactive substance use, unspecified with psychoactive substance-induced sleep disorder; F19.94 Other psychoactive substance use, unspecified with psychoactive substance-induced mood disorder; F19.980 Other psychoactive substance use, unspecified with psychoactive substance-induced anxiety disorder; I10 Essential (primary) hypertension; J45.20 Mild intermittent asthma, uncomplicated; R63.4 Abnormal weight loss; M54.59 Other low back pain; G89.29 Other chronic pain; Z86.69 Personal history of other diseases of the nervous system and sense organs; Z56.0 Unemployment, unspecified; Z59.00 Homelessness unspecified
CPT/HCPCS: 36415; 80053; 80307; 85027; 86780; 93005; 93010; Q0162

== ENCOUNTER 2024-05-04 10:41 | Inpatient (IN) | payer OTHER ==
[2024-05-04 11:00] VITALS: BMI 14.6
[2024-05-04] MEDS ORDERED: BISMUTH SUBSALICYLATE 262 MG/15 ML BTL PO PRN (11:15)
[2024-05-04] MEDS ORDERED: ONDANSETRON *ODT* 4 MG TABLET SL PRN (11:15)
[2024-05-04] MEDS ORDERED: MAGNESIUM HYDROX 2400MG/30ML ORAL SUSPENSION 30 ML CUP PO PRN (11:15)
[2024-05-04] MEDS ORDERED: NALOXONE (NARCAN) HCL 4 MG/0.1 ML SPRAY NS PRN (11:15)
[2024-05-04] MEDS ORDERED: BENZOCAINE/MENTHOL (CHLORASEPTIC ) LOZENGE MM PRN (11:15)
[2024-05-04] MEDS ORDERED: BENZONATATE 200 MG CAPSULE PO PRN (11:15)
[2024-05-04] MEDS ORDERED: guaiFENesin 600 MG TABLET.ER (FP) PO PRN (11:15)
[2024-05-04] MEDS ORDERED: IBUPROFEN 400 MG TABLET (FP) PO PRN (11:15)
[2024-05-04] MEDS ORDERED: LOPERAMIDE HCL 2 MG CAPSULE PO PRN (11:15)
[2024-05-04] MEDS ORDERED: POLYETHYLENE GLYCOL (HEALTHYLAX) 3350 17 GM PACKET PO PRN (11:15)
[2024-05-04] MEDS ORDERED: ACETAMINOPHEN 325 MG TABLET (FP) PO PRN (11:15)
[2024-05-04] MEDS ORDERED: DICYCLOMINE HCL 10 MG CAPSULE PO PRN (11:15)
[2024-05-04] MEDS ORDERED: MAG HYDROX/AL HYDROX/SIMETH 30 ML UNIT-DOSE CUP PO PRN (11:15)
[2024-05-04] MEDS ORDERED: ALBUTEROL SO4 HFA INHALER IH PRN (11:17)
[2024-05-04] MEDS: PRENATAL VITAMINS W/ FOLIC ACID TABLET (FP) PO SCH (11:30)
[2024-05-04] MEDS: chlordiazePOXIDE HCL 25 MG CAPSULE PO SCH (12:00)
[2024-05-04] MEDS ORDERED: chlordiazePOXIDE HCL 25 MG CAPSULE ONE (12:53)
[2024-05-04] MEDS: IBUPROFEN 600 MG TABLET (FP) PO PRN (17:36)
[2024-05-04] MEDS: THIAMINE 100 MG TABLET PO SCH (22:59)
[2024-05-04] MEDS: MELATONIN 5 MG TABLETS PO SCH (22:59)
[2024-05-05] MEDS: METHOCARBAMOL 500 MG TABLET PO PRN (02:35)
[2024-05-05] MEDS: hydrOXYzine PAMOATE 25 MG CAPSULE (FP) PO PRN (02:35)
[2024-05-05] MEDS: FLUTICASONE/UMECLIDIN/VILANTER(100-62.5-25 TRELEGY ELLIPTA) INAHLER IH SCH (10:07)
[2024-05-05 12:29] LABS: HEMATOCRIT 39.4 % (32.4-45.2); HEMOGLOBIN 12.8 GM/dL (10.7-15.3); MCH 29.7 pg (25.7-33.7); MCHC 32.4 g/dl (32.0-36.0); MEAN CELL VOLUME 91.6 fl (80-96); MEAN PLT VOLUME 7.9 fl (7.5-11.1); PLATELET COUNT 330 10^3/uL (134-434); RDW 13.9 % (11.6-15.6); WHITE BLOOD COUNT 7.4 K/mm3 (4.0-10.0)
[2024-05-05 12:32] LABS: POTASSIUM 4.5 mmol/L (3.5-5.1)
[2024-05-05 12:40] LABS: BLOOD UREA NITROGEN 15.8 mg/dL (7-18); CALCIUM 9.2 mg/dL (8.5-10.1)
[2024-05-05 12:44] LABS: CREATININE 0.5 mg/dL (0.55-1.3)
[2024-05-05 12:45] LABS: BILIRUBIN,TOTAL 0.6 mg/dL (0.2-1); TOT PROT 6.5 g/dl (6.4-8.2)
[2024-05-05] MEDS: DIVALPROEX NA *ER* EXTEND REL 500 MG TABLET.SA (FP) PO SCH (22:47)
[2024-05-05] MEDS: GABAPENTIN 100 MG CAPSULE PO SCH (22:52)
[2024-05-06] MEDS: chlordiazePOXIDE HCL 25 MG CAPSULE PO SCH (05:26)
[2024-05-06] MEDS: AMOXICILLIN 500 MG CAPSULE (FP) PO SCH (10:08)
[2024-05-06 14:01] VITALS: RESP 16
[2024-05-06] MEDS: chlordiazePOXIDE HCL 25 MG CAPSULE PO PRN (14:17)
[2024-05-06 17:16] VITALS: BP 128/80; PULSE 111; TEMP 98.9
[2024-05-07] MEDS ORDERED: chlordiazePOXIDE HCL 10 MG CAPSULE PO PRN
[2024-05-07] MEDS ORDERED: chlordiazePOXIDE HCL 10 MG CAPSULE PO SCH (05:00)
[2024-05-08] MEDS ORDERED: chlordiazePOXIDE HCL 10 MG CAPSULE PO SCH (05:00)
[2024-05-09] MEDS ORDERED: chlordiazePOXIDE HCL 10 MG CAPSULE PO ONE (05:00)
== END 2024-05-06 18:35 | disposition left against medical advice (07) | DRG 770 ==
LOC: YASAS 10:41 → Y3N 13:32
PROVIDERS: ADMIT Allergy & Immunology; ATTEND Allergy & Immunology
PROC: HZ2ZZZZ Detoxification Services for Substance Abuse Treatment (ICD-10-PCS; principal; 2024-05-04)
DX: F10.230 Alcohol dependence with withdrawal, uncomplicated (principal); F14.20 Cocaine dependence, uncomplicated; F12.20 Cannabis dependence, uncomplicated; F17.210 Nicotine dependence, cigarettes, uncomplicated; F19.24 Other psychoactive substance dependence with psychoactive substance-induced mood disorder; F31.9 Bipolar disorder, unspecified; G40.909 Epilepsy, unspecified, not intractable, without status epilepticus; I10 Essential (primary) hypertension; J45.909 Unspecified asthma, uncomplicated; I25.2 Old myocardial infarction; Z91.199 Patient's noncompliance with other medical treatment and regimen due to unspecified reason
CPT/HCPCS: 36415; 80053; 80305; 80307; 85027; 86780; 93005; 93010

== ENCOUNTER 2024-07-11 11:49 | Inpatient (IN) | payer OTHER ==
[2024-07-11 12:13] VITALS: BMI 15.3
[2024-07-11] MEDS ORDERED: ALBUTEROL SO4 HFA INHALER IH PRN (12:15)
[2024-07-11] MEDS ORDERED: IBUPROFEN 600 MG TABLET (FP) PO PRN (12:19)
[2024-07-11] MEDS ORDERED: DICYCLOMINE HCL 10 MG CAPSULE PO PRN (12:19)
[2024-07-11] MEDS ORDERED: ACETAMINOPHEN 325 MG TABLET (FP) PO PRN (12:19)
[2024-07-11] MEDS ORDERED: LOPERAMIDE HCL 2 MG CAPSULE PO PRN (12:19)
[2024-07-11] MEDS ORDERED: MAGNESIUM HYDROX 2400MG/30ML ORAL SUSPENSION 30 ML CUP PO PRN (12:19)
[2024-07-11] MEDS ORDERED: NALOXONE (NARCAN) HCL 4 MG/0.1 ML SPRAY NS PRN (12:19)
[2024-07-11] MEDS ORDERED: BISMUTH SUBSALICYLATE 524 MG/30 ML PO PRN (12:19)
[2024-07-11] MEDS ORDERED: MAG HYDROX/AL HYDROX/SIMETH 30 ML UNIT-DOSE CUP PO PRN (12:19)
[2024-07-11] MEDS ORDERED: ONDANSETRON *ODT* 4 MG TABLET SL PRN (12:19)
[2024-07-11] MEDS ORDERED: NICOTINE POLACRILEX 2 MG LOZENGE BC PRN (12:19)
[2024-07-11] MEDS ORDERED: POLYETHYLENE GLYCOL (HEALTHYLAX) 3350 17 GM PACKET PO PRN (12:19)
[2024-07-11] MEDS ORDERED: BENZOCAINE/MENTHOL (CHLORASEPTIC ) LOZENGE MM PRN (12:19)
[2024-07-11] MEDS ORDERED: NICOTINE POLACRILEX 2 MG GUM BUC PRN (12:19)
[2024-07-11] MEDS ORDERED: propRANOLol HCL 10 MG TABLET ONE (13:07)
[2024-07-11] MEDS: propRANOLol HCL 10 MG TABLET PO ONE (13:15)
[2024-07-11] MEDS: hydrOXYzine PAMOATE 25 MG CAPSULE (FP) PO PRN (17:35)
[2024-07-11] MEDS: MELATONIN 5 MG TABLETS PO SCH (22:13)
[2024-07-11] MEDS: THIAMINE 100 MG TABLET PO SCH (22:13)
[2024-07-11] MEDS: METHOCARBAMOL 500 MG TABLET PO PRN (22:14)
[2024-07-11] MEDS: P-EPHED 60MG/TRIPROLIDI 2.5MG TABLET PO PRN (22:15)
[2024-07-12] MEDS: BENZONATATE 200 MG CAPSULE PO PRN (07:51)
[2024-07-12] MEDS: IBUPROFEN 400 MG TABLET (FP) PO PRN (07:51)
[2024-07-12] MEDS: PRENATAL VITAMINS W/ FOLIC ACID TABLET (FP) PO SCH (10:02)
[2024-07-12] MEDS: GABAPENTIN 100 MG CAPSULE PO SCH (10:07)
[2024-07-12] MEDS: chlordiazePOXIDE HCL 25 MG CAPSULE PO SCH (10:07)
[2024-07-12] MEDS: LORATADINE 10 MG TABLET PO SCH (10:07)
[2024-07-12] MEDS: FLUTICASONE/UMECLIDIN/VILANTER(100-62.5-25 TRELEGY ELLIPTA) INAHLER IH SCH (10:55)
[2024-07-12] MEDS: DIVALPROEX NA *ER* EXTEND REL 250 MG TABLET.SA PO SCH (10:55)
[2024-07-12] MEDS: DIVALPROEX NA *ER* EXTEND REL 500 MG TABLET.SA (FP) PO SCH (10:57)
[2024-07-12 11:24] LABS: CHLORIDE 106 mmol/L (98-107); HEMATOCRIT 35.9 % (32.4-45.2); HEMOGLOBIN 11.4 GM/dL (10.7-15.3); MCH 29.4 pg (25.7-33.7); MCHC 31.7 g/dl (32.0-36.0); MEAN CELL VOLUME 92.9 fl (80-96); MEAN PLT VOLUME 7.8 fl (7.5-11.1); PLATELET COUNT 334 10^3/uL (134-434); POTASSIUM 4.1 mmol/L (3.5-5.1); RBC 3.86 M/mm3 (3.60-5.2); RDW 15.4 % (11.6-15.6); SODIUM 139 mmol/L (136-145); WHITE BLOOD COUNT 11.3 K/mm3 (4.0-10.0)
[2024-07-12 11:32] LABS: BLOOD UREA NITROGEN 12.2 mg/dL (7-18)
[2024-07-12 11:33] LABS: CALCIUM 8.7 mg/dL (8.5-10.1)
[2024-07-12 11:34] LABS: ALBUMIN 2.8 g/dl (3.4-5.0); ANION GAP 7 mmol/L (4-13); CO2 26 mmol/L (21-32); GLUCOSE,RANDOM 101 mg/dL (74-106); SGPT/ALT 16 U/L (13-61)
[2024-07-12 11:35] LABS: CREATININE 0.5 mg/dL (0.55-1.3); SGOT/AST 17 U/L (15-37)
[2024-07-12 11:36] LABS: BILIRUBIN,TOTAL 0.5 mg/dL (0.2-1); TOT PROT 6.1 g/dl (6.4-8.2)
[2024-07-12 11:37] LABS: ALK PHOS 61 U/L (45-117)
[2024-07-12] MEDS: metroNIDAZOLE 250 MG TABLET PO ONE (18:56)
[2024-07-12] MEDS: NALTREXONE HCL 50 MG TABLET PO ONE (18:58)
[2024-07-12] MEDS: metroNIDAZOLE 250 MG TABLET PO SCH (22:40)
[2024-07-12] MEDS: MIRTAZAPINE 15 MG TABLET (FP) PO SCH (22:41)
[2024-07-13] MEDS: NALTREXONE HCL 50 MG TABLET PO SCH (10:06)
[2024-07-13] MEDS: guaiFENesin 600 MG TABLET.ER (FP) PO PRN (17:43)
[2024-07-13] MEDS: chlordiazePOXIDE HCL 25 MG CAPSULE PO PRN (20:13)
[2024-07-14] MEDS: chlordiazePOXIDE HCL 25 MG CAPSULE PO SCH (05:43)
[2024-07-14 12:39] VITALS: BP 105/74; PULSE 100; RESP 16; TEMP 97.4
[2024-07-15] MEDS ORDERED: chlordiazePOXIDE HCL 10 MG CAPSULE PO PRN
[2024-07-15] MEDS ORDERED: chlordiazePOXIDE HCL 10 MG CAPSULE PO SCH (05:00)
[2024-07-16] MEDS ORDERED: chlordiazePOXIDE HCL 10 MG CAPSULE PO SCH (05:00)
[2024-07-17] MEDS ORDERED: chlordiazePOXIDE HCL 10 MG CAPSULE PO ONE (05:00)
== END 2024-07-14 14:47 | disposition left against medical advice (07) | DRG 770 ==
LOC: YASAS 11:49 → Y3N 13:27
PROVIDERS: ADMIT Allergy & Immunology; ATTEND Allergy & Immunology
PROC: HZ2ZZZZ Detoxification Services for Substance Abuse Treatment (ICD-10-PCS; principal; 2024-07-11)
DX: F10.230 Alcohol dependence with withdrawal, uncomplicated (principal); F14.20 Cocaine dependence, uncomplicated; F17.210 Nicotine dependence, cigarettes, uncomplicated; F19.282 Other psychoactive substance dependence with psychoactive substance-induced sleep disorder; F19.280 Other psychoactive substance dependence with psychoactive substance-induced anxiety disorder; F19.24 Other psychoactive substance dependence with psychoactive substance-induced mood disorder; F43.10 Post-traumatic stress disorder, unspecified; I10 Essential (primary) hypertension; J45.909 Unspecified asthma, uncomplicated; J30.2 Other seasonal allergic rhinitis; M54.50 Low back pain, unspecified; G89.29 Other chronic pain; I25.2 Old myocardial infarction; Z62.810 Personal history of physical and sexual abuse in childhood; Z91.410 Personal history of adult physical and sexual abuse; Z63.0 Problems in relationship with spouse or partner; Z63.8 Other specified problems related to primary support group
CPT/HCPCS: 0241U-QW; 36415; 80053; 80305; 80307; 85027; 86780; 93005; 93010

== ENCOUNTER 2024-10-13 11:00 | Inpatient (IN) | payer OTHER ==
[2024-10-13 11:22] VITALS: BMI 15.7
[2024-10-13] MEDS ORDERED: BENZONATATE 200 MG CAPSULE PO PRN (11:53)
[2024-10-13] MEDS ORDERED: ONDANSETRON *ODT* 4 MG TABLET SL PRN (11:53)
[2024-10-13] MEDS ORDERED: NICOTINE POLACRILEX 2 MG LOZENGE BC PRN (11:53)
[2024-10-13] MEDS ORDERED: POLYETHYLENE GLYCOL (HEALTHYLAX) 3350 17 GM PACKET PO PRN (11:53)
[2024-10-13] MEDS ORDERED: BENZOCAINE/MENTHOL (CHLORASEPTIC ) LOZENGE MM PRN (11:53)
[2024-10-13] MEDS ORDERED: BISMUTH SUBSALICYLATE 262 MG/15 ML BTL PO PRN (11:53)
[2024-10-13] MEDS ORDERED: NICOTINE POLACRILEX 2 MG GUM BUC PRN (11:53)
[2024-10-13] MEDS ORDERED: ACETAMINOPHEN 325 MG TABLET (FP) PO PRN (11:53)
[2024-10-13] MEDS ORDERED: P-EPHED 60MG/TRIPROLIDI 2.5MG TABLET PO PRN (11:53)
[2024-10-13] MEDS ORDERED: DICYCLOMINE HCL 10 MG CAPSULE PO PRN (11:53)
[2024-10-13] MEDS ORDERED: MAGNESIUM HYDROX 2400MG/30ML ORAL SUSPENSION 30 ML CUP PO PRN (11:53)
[2024-10-13] MEDS ORDERED: LOPERAMIDE HCL 2 MG CAPSULE PO PRN (11:53)
[2024-10-13] MEDS ORDERED: guaiFENesin 600 MG TABLET.ER (FP) PO PRN (11:53)
[2024-10-13] MEDS ORDERED: NALOXONE (NARCAN) HCL 4 MG/0.1 ML SPRAY NS PRN (11:53)
[2024-10-13] MEDS ORDERED: MAG HYDROX/AL HYDROX/SIMETH 30 ML UNIT-DOSE CUP PO PRN (11:53)
[2024-10-13] MEDS ORDERED: IBUPROFEN 400 MG TABLET (FP) PO PRN (11:53)
[2024-10-13] MEDS ORDERED: hydrOXYzine PAMOATE 25 MG CAPSULE (FP) PO PRN (11:53)
[2024-10-13] MEDS ORDERED: chlordiazePOXIDE HCL 25 MG CAPSULE PO PRN (11:55)
[2024-10-13] MEDS ORDERED: chlordiazePOXIDE HCL 25 MG CAPSULE ONE (12:44)
[2024-10-13] MEDS: chlordiazePOXIDE HCL 25 MG CAPSULE PO ONE (12:46)
[2024-10-13] MEDS ORDERED: ALBUTEROL SO4 HFA INHALER IH PRN (13:57)
[2024-10-13] MEDS: metroNIDAZOLE 250 MG TABLET PO SCH (14:41)
[2024-10-13] MEDS: FLUTICASONE/UMECLIDIN/VILANTER(100-62.5-25 TRELEGY ELLIPTA) INAHLER IH SCH (15:16)
[2024-10-13] MEDS: DIVALPROEX NA *ER* EXTEND REL 250 MG TABLET.SA PO SCH (15:16)
[2024-10-13] MEDS: chlordiazePOXIDE HCL 25 MG CAPSULE PO SCH (17:11)
[2024-10-13] MEDS: IBUPROFEN 600 MG TABLET (FP) PO PRN (17:12)
[2024-10-13] MEDS: THIAMINE 100 MG TABLET PO SCH (22:46)
[2024-10-13] MEDS: GABAPENTIN 100 MG CAPSULE PO SCH (22:46)
[2024-10-13] MEDS: MELATONIN 5 MG TABLETS PO SCH (22:46)
[2024-10-14] MEDS: chlordiazePOXIDE HCL 25 MG CAPSULE PO SCH (05:50)
[2024-10-14] MEDS: PRENATAL VITAMINS W/ FOLIC ACID TABLET (FP) PO SCH (10:19)
[2024-10-14] MEDS: METHOCARBAMOL 500 MG TABLET PO PRN (10:20)
[2024-10-14 12:12] LABS: HEMATOCRIT 39.7 % (34.1-44.9); HEMOGLOBIN 11.9 g/dL (11.2-15.7); MEAN CELL VOLUME 94.7 fl (79.4-94.8); MEAN PLT VOLUME 9.6 fl (9.4-12.3); PLATELET COUNT 404 x10^3/uL (182-369); RDW 16.5 % (12.3-16.6)
[2024-10-14 12:15] LABS: POTASSIUM 4.1 mmol/L (3.5-5.1)
[2024-10-14 12:18] LABS: ALBUMIN 3.3 g/dl (3.4-5.0); CALCIUM 9.4 mg/dL (8.5-10.1)
[2024-10-14 12:19] LABS: BLOOD UREA NITROGEN 15.3 mg/dL (7-18)
[2024-10-14 12:22] LABS: CREATININE 0.6 mg/dL (0.55-1.3)
[2024-10-14 12:23] LABS: BILIRUBIN,TOTAL 0.2 mg/dL (0.2-1); TOT PROT 6.6 g/dl (6.4-8.2)
[2024-10-14 17:51] VITALS: BP 118/81; RESP 16; TEMP 98
[2024-10-14 18:24] VITALS: PULSE 90
[2024-10-15] MEDS ORDERED: chlordiazePOXIDE HCL 10 MG CAPSULE PO SCH (05:00)
[2024-10-16] MEDS ORDERED: chlordiazePOXIDE HCL 10 MG CAPSULE PO PRN
[2024-10-16] MEDS ORDERED: chlordiazePOXIDE HCL 10 MG CAPSULE PO SCH (05:00)
[2024-10-17] MEDS ORDERED: chlordiazePOXIDE HCL 10 MG CAPSULE PO ONE (05:00)
== END 2024-10-13 18:35 | disposition left against medical advice (07) | DRG 770 ==
LOC: YASAS 11:00 → Y6N 13:03
PROVIDERS: ADMIT Allergy & Immunology; ATTEND Allergy & Immunology
PROC: HZ2ZZZZ Detoxification Services for Substance Abuse Treatment (ICD-10-PCS; principal; 2024-10-13)
DX: F10.230 Alcohol dependence with withdrawal, uncomplicated (principal); F14.20 Cocaine dependence, uncomplicated; F31.9 Bipolar disorder, unspecified; F43.10 Post-traumatic stress disorder, unspecified; G40.909 Epilepsy, unspecified, not intractable, without status epilepticus; I10 Essential (primary) hypertension; J45.909 Unspecified asthma, uncomplicated
CPT/HCPCS: 36415; 80053; 80307; 85027; 86780